=== PATIENT | female | born 1950 | race Caucasian/White ===

== ENCOUNTER 2021-01-18 14:10 | Emergency (ER) | payer MEDICARE ==
[~2021-01-18] VITALS: Ht 167.6 cm; Wt 88.6 kg
[~2021-01-18 14:10] MED LIST: ALPRAZOLAM1 MG PO; AMITRIPTYLIN25 MG PO; AMITRIPTYLIN50 MG PO; ANTIVERT PO; ASA/BUT/CAFF OR; ASPIRIN LOW DOS81 MG PO; ASPIRIN81 MG PO; BEVESPI AEROSPH1 AER IN; CALCIUM + D600 MG PO; CALCIUM600 M1 PO; CYANOCOBAL1000 MCG/M SC; DOXYCYCL HYC100 MG PO; ECOTRIN325 MG PO; EQL OMEPRAZOLE20 MG PO; FISH OIL1000 M1 PO; FLEXERIL PO; FLONASE AL50 MCG/AC1; FLUOXETINE20 M2 OR; FUROSEMIDE40 MG PO; GABAPENTIN400 M2 PO; GABAPENTIN400 MG PO; KEFLEX500 M1 PO; LANTUS; LANTUS100 MG/ML SC; LASIX 40 MG40 MG/TAB PO; LASIX20 MG PO; LEVEMIR100 UNIT/M SC; LEVOTHYROXIN112 MC1 PO; LISINOPRIL10 MG PO; LORATADINE10 M1 PO; LORTAB 1010 MG PO; LORTAB 5 OR; LORTAB 7.5 OR; LORTAB5 OR; Levaquin PO; MECLIZINE25 MG PO; METFORMIN1000 MG PO; METHIMAZOLE10 MG PO; METOPROLOL SUCC25 MG PO; MICARDIS80 MG OR; NEURONTIN100 MG PO; NORCO1 TA1 PO; NOVOLO1 SC; NOVOLOG FL100 UNIT/M SC; NOVOLOG FLEXPEN SC; NOVOLOG100 UNIT/M; OMEPRAZOLE20 M2 PO; PRAVASTATIN SOD20 MG PO; PRAVASTATIN20 MG PO; PROZAC20 MG PO; PROZAC40 MG PO; SIMVASTATIN40 MG OR; SYMBICORT1 AE1 IN; TOPROL XL25 M1 PO; TRAMADOL HCL50 MG PO; TRAMADOL HYDROC50 M1 PO; TRAZODONE HCL100 MG PO; TRESIBA FL100 UNIT/M SC; TRESIBA FL200 UNIT/M SC; TRULICITY0.75 MG/0. SC; ULTRAM50 M1 PO; VENLAFAXINE HCL75 M1; VENLAFAXINE HCL75 M1 PO; VENLAFAXINE100 MG PO; VICODIN HP1 TA1 PO; VICOPROFEN OR; VICTOZA18 MG/3 ML SC; VITAMIN C500 M6 PO; WELLBUTRIN SR150 MG PO; XANAX0.5 MG PO; XANAX1 MG PO; ZOFRAN ODT4 MG SL; ZOFRAN4 MG/TAB PO
[2021-01-18 15:11] LABS: HEMATOCRIT 34.2 % (37.0-47.0); IMMATURE GRANULOCYTES 0.3 % (0.0-5.0); MEAN CELL VOLUME 86.1 fL CALC (80.0-100.0); MEAN CORPUSCULAR HGB 27.7 pG CALC (26.0-32.0); MEAN CORPUSCULAR HGB CONC 32.2 g/dL CAL (32.0-36.0); NEUT# 4.12 thou/uL (2.00-7.15); RED BLOOD COUNT 3.97 mill/uL (4.20-5.60); RED CELL DISTRI WIDTH 15.7 % (11.5-15.5)
[2021-01-18 15:19] LABS: ALBUMIN 3.5 g/dL (3.2-5.0); BILIRUBIN, TOTAL 0.4 mg/dL (0.0-1.4); CREATININE 1.1 mg/dL (0.5-1.0); POTASSIUM 4.2 mmol/l (3.5-5.1); TOTAL PROTEIN 7.4 g/dL (6.3-8.2)
[2021-01-18 18:01] LABS: URINE BILIRUBIN - DIPSTICK NEGATIVE (NEGATIVE); URINE BLOOD DIPSTICK NEGATIVE (NEGATIVE); URINE COLOR YELLOW; URINE GLUCOSE - DIPSTICK 500 mg/dL (NEGATIVE); URINE KETONE NEGATIVE (NEGATIVE); URINE LEUK ESTERASE NEGATIVE (NEGATIVE); URINE PH 6.5 (4.5-8.0); URINE PROTEIN - DIPSTICK NEGATIVE (NEG-TRACE); URINE SPECIFIC GRAVITY 1.025
[2021-01-18 18:03] LABS: URINE NITRITE - DIPSTICK NEGATIVE (Negative)
[2021-01-18 18:40] VITALS: BP 134/59
== END 2021-01-18 18:55 | disposition left against medical advice (07) ==
LOC: ED 14:10
DX: A41.9 Sepsis, unspecified organism (principal); S81.802A Unspecified open wound, left lower leg, initial encounter; L08.9 Local infection of the skin and subcutaneous tissue, unspecified; S80.01XA Contusion of right knee, initial encounter; S00.83XA Contusion of other part of head, initial encounter; S50.311A Abrasion of right elbow, initial encounter; E11.9 Type 2 diabetes mellitus without complications; J44.9 Chronic obstructive pulmonary disease, unspecified; E78.5 Hyperlipidemia, unspecified; F32.9 Major depressive disorder, single episode, unspecified; I89.0 Lymphedema, not elsewhere classified; F17.200 Nicotine dependence, unspecified, uncomplicated; W19.XXXA Unspecified fall, initial encounter; B95.62 Methicillin resistant Staphylococcus aureus infection as the cause of diseases classified elsewhere; Z86.73 Personal history of transient ischemic attack (TIA), and cerebral infarction without residual deficits; Z79.4 Long term (current) use of insulin; Z91.19 Patient's noncompliance with other medical treatment and regimen; Z91.81 History of falling; Z20.822 Contact with and (suspected) exposure to COVID-19

== ENCOUNTER 2021-01-20 14:30 | Emergency (ER) | payer MEDICARE ==
[~2021-01-20] VITALS: Ht 165.1 cm; Wt 118.1 kg
[2021-01-20 19:15] VITALS: BP 134/72
[2021-01-20] MEDS ORDERED: BACTRIM DS1 TAB PO (19:20)
== END 2021-01-20 19:23 | disposition home or self-care (01) ==
LOC: ED 14:30
DX: L03.116 Cellulitis of left lower limb (principal); R78.81 Bacteremia; E11.9 Type 2 diabetes mellitus without complications; J44.9 Chronic obstructive pulmonary disease, unspecified; E78.5 Hyperlipidemia, unspecified; F32.9 Major depressive disorder, single episode, unspecified; F17.210 Nicotine dependence, cigarettes, uncomplicated; S80.01XD Contusion of right knee, subsequent encounter; X58.XXXD Exposure to other specified factors, subsequent encounter; Z79.4 Long term (current) use of insulin; Z86.73 Personal history of transient ischemic attack (TIA), and cerebral infarction without residual deficits

== ENCOUNTER 2021-03-29 17:17 | Inpatient (IN) | payer MEDICARE, MEDICAID ==
[~2021-03-29] VITALS: Ht 167.6 cm; Wt 124.1 kg
[~2021-03-29 17:17] MED LIST changes: +BACTRIM DS1 TAB PO
--- NOTE | 2021-03-29 17:17 | NUR ---
PT TO ROOM VIA EMS STRETCHER OWN EMS BIPAP.
--- NOTE | 2021-03-29 17:20 | NUR ---
PT WAS PLACED ON HOSPITAL BIPAP AT THIS TIME. RR 40. MD AT BEDSIDE.
[2021-03-29 17:52] LABS: HEMATOCRIT 32.8 % (37.0-47.0); HEMOGLOBIN 9.9 g/dl (12.0-16.0); IMMATURE GRANULOCYTES 0.4 % (0.0-5.0); MEAN CELL VOLUME 88.4 fL CALC (80.0-100.0); MEAN CORPUSCULAR HGB 26.7 pG CALC (26.0-32.0); MEAN CORPUSCULAR HGB CONC 30.2 g/dL CAL (32.0-36.0); NEUT# 4.67 thou/uL (2.00-7.15); RED BLOOD COUNT 3.71 mill/uL (4.20-5.60); RED CELL DISTRI WIDTH 16.4 % (11.5-15.5)
--- NOTE | 2021-03-29 17:55 | NUR ---
PT C CO NAUSEA. AUDIO VIDEO TECH PLACED PT ON 6LPM NC AND PT SPO2 DECREASED TO LOW 70S RAPIDLY. PLACED PT BACK ON PRIOR NIV SETTINGS, BUT TITRATED FIOS PER PT SPO2. NAD. VSS. ASHLEY WELL AT THIS TIME.
[2021-03-29 18:08] LABS: BILIRUBIN, TOTAL 0.5 mg/dL (0.0-1.4); CREATININE 1.4 mg/dL (0.5-1.0); POTASSIUM 4.6 mmol/l (3.5-5.1)
[2021-03-29 18:15] LABS: D-DIMER 1.07 mg/L (0.19-0.60)
[2021-03-29 18:25] LABS: ACT PARTIAL THROMBO TIME 32.8 SECONDS (20.0-32.5); INTERNATIONAL NORMALIZED RATIO 1.1 RATIO (0.7-1.3); PROTHROMBIN TIME 11.6 SECONDS (9.0-12.5)
[2021-03-29 18:32] LABS: ALBUMIN 2.6 g/dL (3.2-5.0); TOTAL PROTEIN 5.8 g/dL (6.3-8.2)
--- NOTE | 2021-03-29 19:05 | NUR ---
RECEIVED PATIENT IN BED SEMI-FOWLERS POSITION WITH BIPAP IN USE. O2 SAT DECREASED TO 85% WHEN BIPAP TUBING BECAME DISCONNECTED. O2 SAT RETURNED TO 88 TO 92% ON BIPAP WITH 65% O2. RESP RATE 26, WILL CONTINUE TO MONITOR. MALE PARTS ROOM ASSOCIATE AT BEDSIDE
--- NOTE | 2021-03-29 19:45 | NUR ---
FAMILY MEMBER LEAVING AT THIS TIME. PATIENT REQUEST THAT DAUGHTER IN LAW IN LOBBY BE GIVEN FULL UPDATE TO INCLUDE DIAGNOSIS AND TREATMENT THUS FAR. UPDATE GIVEN.
--- NOTE | 2021-03-29 20:40 | NUR ---
EXTENDED TIME IN RADIOLOGY FOR CT ACCOMPANIED BY RT. IV SITE SAURAV ELIAS AND SECURED WHILE IN CT.
--- NOTE | 2021-03-29 22:00 | NUR ---
O2 SATS 88 TO 96% ON BIPAP AT 65%. O2 SATURATION DECREASED TO 84% PATIENT AROUSED. HEAD POSITIONED WITH ROLLED TOWEL PATIENT LEANS HEAD FORWARD WHEN SLEEPING. O2 SAT INCREASED TO 87%. 100% O2 GIVEN FOR 2 MINUTES. O2 SAT INCREASED TO 89%. PHYICIAN NOTIFIED. WILL CONTINUE TO MONITOR.
--- NOTE | 2021-03-29 22:50 | NUR ---
POST INTUBATION O2 SATS 75-77 ON VENT. VENT DISCONNECTED. AMBU BAG USED - O2 SAT INCREASED TO 80% RT AT BEDSIDE. PHYSICIAN
--- NOTE | 2021-03-29 22:51 | NUR ---
PHYSICIAN NOTIFIED OF PERSISTENT LOW SATURATION ON VENTILATOR WITH 100% O2. RT REMAINS AT BEDSIDE. SUCTIONED SMALL AMT THICK SECREATIONS. VENT REOLACED. WILL CONTINUE TO MONITOR
--- NOTE | 2021-03-29 23:30 | NUR ---
JULITO BLOOD NOTED IMEDIATELY POST ENRIQUEZ INSERTION. ENRIQUEZ INSERTED WITHOUT DIFICULTY. URETHRAL TRAUMA PER PHYSICIAN. GAUZE PLACED TO SITE. WILL MONITOR
--- NOTE | 2021-03-29 23:46 | NUR ---
PROFOFOL STARTED A 5 AND TIRATED TO 25 PER PROTOCOL. BP DECREASED WITH MAP 55. MAP PREVIOUSLY MAINTAINED ABOVE 60. DISCUSSED POSSIBLE CENTRAL LINE PLACEMENT AND USE OF LEVOPHED. PER PHYSICIAN WEAN PROFOFOL WITH PLAN TO USE VERSED FOR SEDATON IF UNABLE TO MAINTAIN SEDATION WITH LOWER DOSE OF PROFOFOL.
--- NOTE | 2021-03-29 23:57 | NUR ---
PROFOFOL WEANED TO 15. PATIENT RESTING QUIETLY. WILL CONTINUE TO MONITOR MAP 60. O2 SATURATIONS 80-84%
[2021-03-30] VITALS (39 sets, daily range): BP systolic 69–144; BP diastolic 30–77
[2021-03-30] LABS: URINE BILIRUBIN - DIPSTICK NEGATIVE (NEGATIVE); URINE BLOOD DIPSTICK TRACE-INTACT (NEGATIVE); URINE COLOR YELLOW; URINE GLUCOSE - DIPSTICK 500 mg/dL (NEGATIVE); URINE KETONE NEGATIVE (NEGATIVE); URINE LEUK ESTERASE NEGATIVE (NEGATIVE); URINE PH 5.5 (4.5-8.0); URINE PROTEIN - DIPSTICK 30 mg/dL (NEG-TRACE); URINE SPECIFIC GRAVITY >=1.030
[2021-03-30 00:01] LABS: URINE NITRITE - DIPSTICK NEGATIVE (Negative)
[2021-03-30 00:06] LABS: URINE BACTERIA FEW hpf; URINE SQUAMOUS EPITHELIAL CELL FEW EPI/hpf (0-FEW)
--- NOTE | 2021-03-30 00:09 | NUR ---
PT AGITATED, MOVING HEAD AND ARMS. PHYSICIAN NOTIFIED. O2 SAT 85-87% RR 22 ON VENT. EMOTIONAL SUPPORT PROVIDED. MAP 77 SUCTIONED SMALL AMT THICK SECREATIONS
--- NOTE | 2021-03-30 00:30 | NUR ---
PT RESTING QUIETLY O2 SAT 88% RR 21
--- NOTE | 2021-03-30 01:10 | NUR ---
REPORT GIVEN TO WEI CORBIN IN ICU FOR ADMISSION
--- NOTE | 2021-03-30 01:14 | NUR ---
AWAITING RT FOR REPORT
--- NOTE | 2021-03-30 01:21 | NUR ---
PATIENT GAGING ON ET TUBE AND ATEMPTING TO REACH FOR TUBE. EMOTIONAL SUPPORT PROVIDED. ED PHYSICIAN NOTIFIED
--- NOTE | 2021-03-30 01:36 | NUR ---
MARISELAAY TO GIVE PRN 2MG VERSED PER DR. YOUNG
--- NOTE | 2021-03-30 02:00 | NUR ---
PATIENT TRANSPORTED TO ICU ACCOMPANIED BY RT WITH PROFOFLO IN USE. AMBU BAG IN USE DURING TRANSPORT. PATIENT TOLERATED WELL. DRSG INTACT TO LLE
--- NOTE | 2021-03-30 02:05 | NUR ---
ARRIVED TO FLOOR FROM ER INTUBATED DIPRIVAN INFUSING RESTLESS AGITATED FOLLOWS NO REQUESTS DOES OPEN EYES WHEN NAME CALLED TO TECHNICAL STAFF ASSISTANT SR WITH PACS ETT TO VENT TV 550 RATE 20 ASSIST CONTROL PEEP+10 FIO2 100% FOLWY PATENT WITH OLY URINE IV 18 IN LAC 20 IN RAC. NORMAL SALLINE STARTED AT 150CC/HR.
--- NOTE | 2021-03-30 04:00 | NUR ---
TITRATING DIPRIVAN AND VERSED GTTS STARTED ON LEVOPHED GTT NO OTHER CHANGES NOTED.PT HAS ULCERS OF LLE DRESSING REMOVED AND REDRESSED AFTER PICTURES TAKEN. SEE TITRATION RECORD.
[2021-03-30 05:44] LABS: HEMATOCRIT 35.2 % (37.0-47.0); HEMOGLOBIN 10.5 g/dl (12.0-16.0); IMMATURE GRANULOCYTES 0.5 % (0.0-5.0); MEAN CELL VOLUME 90.3 fL CALC (80.0-100.0); MEAN CORPUSCULAR HGB 26.9 pG CALC (26.0-32.0); MEAN CORPUSCULAR HGB CONC 29.8 g/dL CAL (32.0-36.0); NEUT# 6.77 thou/uL (2.00-7.15); RED BLOOD COUNT 3.9 mill/uL (4.20-5.60); RED CELL DISTRI WIDTH 16.8 % (11.5-15.5)
--- NOTE | 2021-03-30 06:00 | NUR ---
PATIENT RESTING CALMLY AND QUIETLY AT THIS TIME. VERSED GTT INFUSING AT 2 MG/HR AND NS AT 150 ML/HR INTO RAC IV SITE. PROPOFOL GTT INFUSING AT 25 MCG/KG/MIN AND LEVOPHED INFUSING AT 8 MCG/MIN. VSS. SR ON MONITOR.
[2021-03-30 06:02] LABS: CREATININE 1.4 mg/dL (0.5-1.0)
--- NOTE | 2021-03-30 06:35 | NUR ---
ATTEMPTED TO CALL [facility] TO UPDATE ON PATIENT CONDITION. PHONE NUMBERS ON RECORD [phone] NO ANSWER AND NO VOICE MAIL SET UP. [phone] LEFT MESSAGE AND CALL BACK PHONE NUMBER WITH URGENT DELIVERY.
[2021-03-30 06:44] LABS: C-REACTIVE PROTEIN 20.1 mg/dL (0-0.9); POTASSIUM 5.5 mmol/l (3.5-5.1)
--- NOTE | 2021-03-30 06:46 | NUR ---
O2 SAT 85%. PEEP INCREASED TO 14.
[2021-03-30] MEDS ORDERED: BUPROPN HCL300 MG PO (07:12)
--- NOTE | 2021-03-30 07:50 | NUR ---
PATIENT IS STIL ON A VENT. UNABLE TO RESPOND TO MY VOICE, DOESN'T OPEN HER EYES ON HER OWN. USING HER ABDOMINAL MUSCLES TO BREATHE, RESTLESS, -2 ON RASS SCALE. UNABLE TO FOLLOW COMMANDS. OBESE. SOFT ABDOMEN. HYPOACTIVE BOWEL SOUNDS. S1/S2 NOTED. EDEMA ON LEFT LEG +1, ULCERS ON LOWER LEG WELL PICTURES WERE PREVIOUSLY TAKEN BY NIGHT NURSE. CURRENTLY COVERED WITH A CLEAN, DRY DRESSING. EDEMA ON LEFT FOOT, WEAK PULSE ON THAT LEFT FOOT.SAFETY MEASURES IN PLACE. WILL CONTINUE TO MONITOR.
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
--- NOTE | 2021-03-30 10:00 | NUR ---
PATIENT IS STILL RESTLESS. DR. GEORGES STATED TO NOT PERFORM SEDATION VACATION TODAY, GIVE HER TIME TO RECOVER, TRY TOMORROW TO WEAN OFF. PATIENT'S BREATHING STILL LABORED, RAPID RESPIRATIONS. MOVES ARMS UP AND DOWN. TRIED GETTING IV ON HER TWICE DID NOT WORK DUE TO HER MOVING SO OFTEN. WILL ASK OTHER NURSE TO HELP WITH IV PLACEMENT
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
--- NOTE | 2021-03-30 12:14 | NUR ---
RR INCREASED TO 24.
--- NOTE | 2021-03-30 13:00 | NUR ---
PATIENT'S , SON AND SON'S CAME TO TALK TO ME DOWN AT THE ER. THE SON CALLED EARLIER CO WORKER TOLD HIM TO CALL ME BACK IN 30 MINTUES BECAUSE I WAS IN THE ROOM WITH HIS MOTHER. DID NOT CALL ME BACK, SHOWED UP AT THE ER. WALKED DOWN THERE TO TALK TO THEM, TOOK THEM OUTSIDE TO TALK MORE PRIVATELY THEY STATED THAT THEY AGREED. GAVE THEM AN UPDATE ON HIS MOTHER'S CONDITION. ASKED IF THEY CAN GIVE ME A WORKING NUMBER BECAUSE WE'VE BEEN CALLING AND IT KEEPS SENDING US TO A [employer]. THEY STATED THEY DID NOT OWN A [employer] AND THAT THEY ARE SORRY FOR PROVIDING US WRONG NUMBERS. GAVE ME HIS AND HIS 'S CELL PHONE NUMBERS, PLACED IN THE CHART. TOLD THEM THEY CAN'T VISIT HIS MOTHER BECAUSE SHE TESTED POSITIVE FOR COVID BUT THAT THEY CAN CALL US AT ANY TIME FOR UPDATES WE WILL TRY OUR BEST TO REACH OUT TO YOU WHEN WE HAVE THE TIME. ALSO INFORMED THEM THAT I AM HERE TILL 7PM AND THAT ILL BE MORE THAN HAPPY TO PROVIDE AN UPDATE TO THEM ALSO THE CODE SO THAT THEY CAN ASK FOR MORE UPDATES IN THE FUTURE.
--- NOTE | 2021-03-30 14:00 | NUR ---
PATIENT LOOKS MORE COMFORTABLE IN BED, STILL RAPID RESPIRATIONS USING ABDMONIAL MUSCLES.
--- NOTE | 2021-03-30 16:00 | NUR ---
PATIEMT IS RESTING IN BED, SHALLOW BREATHING BUT LOOKS MORE COMOFORTABLE THAN EARLIER TODAY.
--- NOTE | 2021-03-30 17:30 | NUR ---
PATIENT'S BLOOD SUGAR WAS CRICIALLY HIGH, SENT ORDER FOR STAT BLOOD SUGAR TO BE TAKEN.
--- NOTE | 2021-03-30 17:55 | NUR ---
PATIENT'S DAUGHTER IN LAW ANASTASIA CALLED FOR AN UPDATE, SPOKE TO HER EARLIER DOWNSTAIRS. CODE WAS GIVEN FOR FUTURE REFERENCE. UPDATED WAS GIVEN.
--- NOTE | 2021-03-30 18:20 | NUR ---
PATIENT HAS BEEN GETTING ORAL CARE EVERY TWO HOURS AND SUCTIONING NEEDED THROUGHOUT THE SHIFT.
--- NOTE | 2021-03-30 18:23 | NUR ---
UNABLE TO ADMINISTER THE ZOSYN ON TIME EARLIER, MEDICATION NEEDS TO BE 6 HOURS APART WILL EXPLAIN TO NIGHT NURSE ON WHY I DID NOT ADMINISTER THE ZOSYN AT 1800.
--- NOTE | 2021-03-30 19:30 | NUR ---
remains sedated. vent cont. no acute distress. associate engineer shows sinus rhythm 1st degree avb ivcd hr 70. #20 rt hand saline lock, #18 lac diprivan infusing @ 60mcg/kg/min, levo infusing @ 8mcg/min. #18 rac ns @ 10cchr, versed infusing @ 2mghr. og in place, lis cont draining raines liquid. arias cath in place. urine clear yellow. dsg cdi to lle. turned & repositioned. pt is VERY obese. requires total care for all needs. bilat wrist restraints & fall precautions cont. air mattress requested from supervisor hot dip tinning.
--- NOTE | 2021-03-30 20:29 | NUR ---
ACCUCHEK TAKEN READS CRITICALLY HIGH
--- NOTE | 2021-03-30 22:00 | NUR ---
vent cont assisted by pt. no distress. real estate salesperson shows sinus rhythm 1st degree avb ivcd hr 76.
[2021-03-31] VITALS (22 sets, daily range): BP systolic 97–144; BP diastolic 42–68
--- NOTE | 2021-03-31 00:01 | NUR ---
vent cont assisted by pt. no distress. ivf infusing well.
--- NOTE | 2021-03-31 02:00 | NUR ---
vent cont assisted by pt. no apparent distress. arias draining well.
--- NOTE | 2021-03-31 04:00 | NUR ---
vent cont assisted by pt. cardiac cath lab manager shows sinus rhythm 1st degree avb ivcd hr 70.
--- NOTE | 2021-03-31 05:12 | NUR ---
lab here. blood drawn. xray here. pcxr obtained.
--- NOTE | 2021-03-31 05:15 | NUR ---
rt here. abgs drawn.
[2021-03-31 05:36] LABS: HEMATOCRIT 35.1 % (37.0-47.0); HEMOGLOBIN 10.8 g/dl (12.0-16.0); IMMATURE GRANULOCYTES 1.4 % (0.0-5.0); MEAN CELL VOLUME 88.9 fL CALC (80.0-100.0); MEAN CORPUSCULAR HGB 27.3 pG CALC (26.0-32.0); MEAN CORPUSCULAR HGB CONC 30.8 g/dL CAL (32.0-36.0); NEUT# 8.92 thou/uL (2.00-7.15); RED BLOOD COUNT 3.95 mill/uL (4.20-5.60); RED CELL DISTRI WIDTH 16.7 % (11.5-15.5)
--- NOTE | 2021-03-31 05:50 | NUR ---
entered pts room in an attempt to bathe pt. resps rapid, pulse ox 76%. rt notified. bath given. rt redrew abg's & requested another pcxr. pcxr repeated. rt called results of abg & repeat cxr dr dinh. physician requested pt to be proned.
[2021-03-31 06:09] LABS: CREATININE 1.4 mg/dL (0.5-1.0)
[2021-03-31 06:21] LABS: C-REACTIVE PROTEIN 14.4 mg/dL (0-0.9); POTASSIUM 5.2 mmol/l (3.5-5.1)
--- NOTE | 2021-03-31 07:07 | NUR ---
dr dinh called this communications writer. updated on pts condition. requested family to be called & pulmonary consult with dr serra.
--- NOTE | 2021-03-31 07:13 | NUR ---
kelsie(son) called. update given.
--- NOTE | 2021-03-31 07:33 | NUR ---
PT SEEN INTUBATED, SEDATED, RESTING IN THE BED. PT'S LUNGS ARE COARSE, DIMINISHED IN THE BASES. PEEP 14, OXYGEN 100% FROM VENT, PROPOFOL AND VERSED USED FOR SEDATION, LEVOPHED FOR BLOOD PRESSURE CONTROL. ABDOMEN RISES AND FALLS WITH EACH INSPIRATION. SON MILLIE WAS CALLED THIS MORNING, UPDATED BY MAXIMILIANO ON CRITICAL STATUS.
--- NOTE | 2021-03-31 09:24 | NUR ---
CONSULT PLACED WITH DR GARCIA, JORDAN WORKER, WHO RETURNED CALL SOON THEREAFTER. DR GARCIA STATED THAT THE CT WAS "TERRIBLE" AND RECOMMENDED TURNING TO HER SIDE POSSIBLE SINCE PRONING WOULD BE EXTREMELY DIFFICULT WITH LARGE PT. SHE ALSO RECOMMENDED ACTIMRA IF CARRIED BY OUR PHARMACY.
--- NOTE | 2021-03-31 11:17 | NUR ---
PT HAS BEEN PLACED ON A SPECIALTY MATTRESS. PT REMAINS INTUBATED, SEDATED. DIPRIVAN DECREASED FROM 60 TO 50, LEVOPHED DOWN FROM 8 TO 4.
--- NOTE | 2021-03-31 13:34 | NUR ---
DRESSING CHANGED TO LLE, XEROFORM, ABD AND KERLIX USED.
--- NOTE | 2021-03-31 14:21 | NUR ---
PT note Patient is screened for PT intervention and will eventually need PT consult if medical agrees- once she is medically stable
--- NOTE | 2021-03-31 16:43 | NUR ---
DIPRIVAN REMAINS AT 50, LEVOPHED LOWERED TO 2 FROM 3, VERSED LOWERED TO 10 FROM 20. PT REMAINS AT REST IN THE BED, NO DISTRESS, HAS BEEN TURNED TO HER SIDE MUCH POSSIBLE EVERY 2 HOURS OR LESS. TUBE FEEDING BEGUN AT 30 ML/HR, PULMOCARE.
--- NOTE | 2021-03-31 19:26 | NUR ---
REPORT GIVEN BY MELECIO. PATIENT IS INTBATED AND SEDATED. REFER TO CHARTING FOR VENT SETTINGS. RESP EVEN AND UNLABORED. FALL AND SAFTEY PRECAUTIONS. IV INFUSING DIPIRIVAN, VERSED, LEVOPHED, AND KVO FLUIDS. OJ WITH TUBE FEEDING ON 30ML/HR, PLACEMENT VERIFED. NSR TELE. ENRIQUEZ DRAINING CLEAR YELLOW URINE. LUNG SOUNDS COARSE.
--- NOTE | 2021-03-31 22:36 | NUR ---
CHANGE IN PATIENT CONDITION. FALL AND SAFTEY PRECAUTIONS IN PLACE. NO S/S OF DISTRESS NOTED
--- NOTE | 2021-03-31 23:43 | NUR ---
LUIS M AND SUSNANAH MAK UPDATED ON PATIENT CONDITION
[2021-04-01] VITALS (22 sets, daily range): BP systolic 91–144; BP diastolic 43–75
--- NOTE | 2021-04-01 00:13 | NUR ---
CHECKED RESIDUAL FOR TUBE FEEDING IS 60 ML. TUBE FEEDING TURNED OFF AT THIS TIME. WILL RECHECK AT 0400.
--- NOTE | 2021-04-01 02:00 | NUR ---
PATIENT INTABATED AND SEDATED. NO S/S OF DISTRESS NOTED
--- NOTE | 2021-04-01 04:00 | NUR ---
RESIDUAL MEASURE: 0ML. TUBE FEEDING RESTARTED
[2021-04-01 05:32] LABS: HEMATOCRIT 33.1 % (37.0-47.0); IMMATURE GRANULOCYTES 1.1 % (0.0-5.0); MEAN CELL VOLUME 89.9 fL CALC (80.0-100.0); MEAN CORPUSCULAR HGB 27.2 pG CALC (26.0-32.0); MEAN CORPUSCULAR HGB CONC 30.2 g/dL CAL (32.0-36.0); NEUT# 6.65 thou/uL (2.00-7.15); RED BLOOD COUNT 3.68 mill/uL (4.20-5.60); RED CELL DISTRI WIDTH 16.5 % (11.5-15.5)
[2021-04-01 05:38] LABS: ALBUMIN 2.5 g/dL (3.2-5.0); BILIRUBIN, TOTAL 0.5 mg/dL (0.0-1.4); C-REACTIVE PROTEIN 7.7 mg/dL (0-0.9); CREATININE 1.3 mg/dL (0.5-1.0); TOTAL PROTEIN 5.7 g/dL (6.3-8.2)
[2021-04-01 05:48] LABS: POTASSIUM 5.2 mmol/l (3.5-5.1)
--- NOTE | 2021-04-01 07:48 | NUR ---
PT SEEN AT REST IN THE BED, INTUBATED AND SEDATED. PT WITH O-2 SATS NEARING 100%, RESPIRATORY WITH ADJUSTMENTS DOWNWARD. PT REPOSITIONED TO LEFT SIDE. TUBE FEEDING FINDS RESIDUAL OF GREATER THAN 50, PLACED ON HOLD. ENRIQUEZ DRAINS OLY URINE.
--- NOTE | 2021-04-01 09:55 | NUR ---
PT NOW WITH VERSED DISCONTINUED AND LEVOPHED DISCONTINUED. PT REMAINS SEDATED WITH PROPOFOL AT 50 AND BLOOD PRESSURE IS IN THE UPPER 90s SYSTOLIC. IV LASIX PROVIDED PER INCREASE IN DAILY WEIGHT AND PUFFINESS LLE.
--- NOTE | 2021-04-01 12:45 | NUR ---
PROPOFOL NOW AT 45, PT REMAINS AT REST IN BED WITHOUT MOVEMENT. PT'S OXYGEN SATURATION IS MID TO UPPER 90s.
--- NOTE | 2021-04-01 16:41 | NUR ---
PT WAS NOTED MOVING EXTREMITIES AT PROPOFOL 45 mkm, RETURNED TO 50 FOR COMPLETE SEDATION. LEVOPHED HAD BEEN OFF, RETURNED TO 2 PER LOWERING BLOOD PRESSURE IN THE LOW 90s SYSTOLIC. WEDGE PILLOW PROVIDED BY PHYSICAL THERAPIST SYLVIE, PLACED UNDER ALTERNATING SIDES. PT TOLERATING WELL.
--- NOTE | 2021-04-01 18:18 | NUR ---
OG NOW SET TO LIS PER DRAWING 100 ML OF PULMOCARE FROM TUBE. LEVOPHED DOWN TO 1 FROM 2 PER GOOD BLOOD PRESSURE NOW. WEDGE PLACED ON OTHER SIDE FOR SKIN PRESERVATION. LAC IV SITE REMOVED PER SWELLING TO AREA. SATS REMAIN IN THE 90s.
--- NOTE | 2021-04-01 20:01 | NUR ---
REPORT GIVEN BY MELECIO. PATIENT INTABATED AND SEDATED. OJ LIS. REFER TO CHARTING FOR VENT SETTING. Q6 ACCU CHECK. FALL AND SAFTEY PRECAUTIONS IN PLACE. IV INFUSING DIPIRVAN, KVO FLUIDS, LEVOPHED. ENRIQUEZ DRAINING TO GRAVITY CLEAR YELLOW URINE. SCD IN PLACE, RLE. WOUND PRESENT LLE, DRESSING CDI. PATIENT ON AIR MATTERESS WITH FREQ TURNING FROM SIDE TO SIDE.
--- NOTE | 2021-04-01 21:35 | NUR ---
SON UPDATED ON PATIENT CONDITION
--- NOTE | 2021-04-01 23:57 | NUR ---
MIDNIGHT ACCUCHECK PERFORMED. MEDICATED PER MD ORDERS. RT AT BEDSIDE. PATIENT MOVED FROM SIDE TO SIDE. HEART RATE NOTED 45-50 BPM
[2021-04-02] VITALS (17 sets, daily range): BP systolic 106–166; BP diastolic 51–84
--- NOTE | 2021-04-02 02:00 | NUR ---
NEW TUBING HUNG WITH THE NEW BOTTLE OF JEFF.
--- NOTE | 2021-04-02 02:56 | NUR ---
RT AT THE BEDSIDE
--- NOTE | 2021-04-02 04:13 | NUR ---
PATIENT INTABTED AND SEDATED. FALL AND SAFTEY PRECAUTIONS IN PLACE.
--- NOTE | 2021-04-02 04:52 | NUR ---
RT AND LAB AT THE BEDSIDE
--- NOTE | 2021-04-02 05:28 | NUR ---
X-RAY AT THE BEDSIDE
--- NOTE | 2021-04-02 08:00 | NUR ---
PT SEEN SEDATED, INTUBATED. PT TURNED TO RIGHT SIDE AT THIS TIME. MONITOR SHOWS SATS IN THE 90s. NO AGITATION NOTED.
[2021-04-02 10:04] LABS: BASO% 0 % (0-3); EOS% 0 % (0-8); HEMATOCRIT 30.6 % (37.0-47.0); HEMOGLOBIN 9.5 g/dl (12.0-16.0); IMMATURE GRANULOCYTES 3.4 % (0.0-5.0); LYMPH% 9 % (15-41); MEAN CELL VOLUME 86.7 fL CALC (80.0-100.0); MEAN CORPUSCULAR HGB 26.9 pG CALC (26.0-32.0); MONO% 6 % (2-13); NEUT# 6.06 thou/uL (2.00-7.15); NEUT% 82 % (42-76); PLATELET COUNT 147 thou/uL (130-400); RED BLOOD COUNT 3.53 mill/uL (4.20-5.60); RED CELL DISTRI WIDTH 16.7 % (11.5-15.5)
[2021-04-02 10:21] LABS: ALBUMIN 2.5 g/dL (3.2-5.0); BILIRUBIN, TOTAL 0.4 mg/dL (0.0-1.4); C-REACTIVE PROTEIN 7.1 mg/dL (0-0.9); CREATININE 1.1 mg/dL (0.5-1.0); TOTAL PROTEIN 5.6 g/dL (6.3-8.2)
--- NOTE | 2021-04-02 10:52 | NUR ---
DR ACEVES FROM ER HAS PLACED CENTRAL LINE, TLC TO RIGHT JUGULAR. PT TOLERATED WELL. PCXR DONE, SITE CAN BE USED. PT HAS HAD LOW HR TODAY, LOW 50s. DR VAZQUEZ AWARE, ORDERS RECEIVED TO INCREASE VERSED, INCREASE LEVOPHED, DECREASE PROPOFOL. PT TURNED TO LEFT SIDE. NO ACUTE DISTRESS NOTED.
--- NOTE | 2021-04-02 14:33 | NUR ---
O2 SATURATION 84%. FIO2 INCREASED TO 80%.
--- NOTE | 2021-04-02 15:21 | NUR ---
PT WITH NORMAL HR AGAIN AFTER MED ADJUSTMENTS. ATIVAN NOW IN USE FOR SEDATION ALONG WITH THE PROPOFOL. LEVOPHED CONTINUES TO MAINTAIN ADEQUATE BLOOD PRESSURE. PT WITH COMPLETE BEDBATH BY GRIFFIN PIKE. PT SEEN TO HAVE SMALL LIQUID STOOL. PT'S OXYGEN SAT 91% AFTER BATH. NO DISTRESS NOTED.
--- NOTE | 2021-04-02 17:24 | NUR ---
PT NEEDED TO HAVE RESTRAINTS APPLIED TO BILATERAL WRISTS PER REACHING FOR TUBES, UNABLE TO BE SURE THAT SHE WILL NOT ATTEMPT EXTUBATION. SATS HOVER AROUND 90%. PT TURNED TO RIGHT SIDE.
--- NOTE | 2021-04-02 19:15 | NUR ---
pt remains sedated. vent cont assisted by pt. review scheduling coordinator shows sinus diane ivcd pacs hr 50. ivf per rij tlc. ativan gtt infusing @ 3mg/hr, diprivan infusing @ 25mcg/kg/min, levo infusing @ 2mcg/min, ns infusing @ 10cchr. og in place draining dk green liquid. arias cath in place. urine cloudy jaylen. dsg cdi to lle. bilat wrist restraints, air mattress, scd & air/contact precautions cont. turned & repositioned. wedge replaced. pt is VERY obese. requires total assist with all care.
--- NOTE | 2021-04-02 22:00 | NUR ---
vent cont assisted by pt. telemetry monitor shows sinus diane hr 56.
--- NOTE | 2021-04-02 23:00 | NUR ---
xray here. kulona done.
[2021-04-03] VITALS (22 sets, daily range): BP systolic 96–140; BP diastolic 37–64
--- NOTE | 2021-04-03 00:01 | NUR ---
remains sedated. vent cont assisted by pt. arias draining well.
--- NOTE | 2021-04-03 02:00 | NUR ---
vent cont assisted by pt. cardiac nurse practitioner shows sinus diane ivcd hr 50.
--- NOTE | 2021-04-03 04:45 | NUR ---
blood drawn & sent to lab.
[2021-04-03 05:11] LABS: BASO% 0 % (0-3); EOS% 1 % (0-8); HEMATOCRIT 31.7 % (37.0-47.0); HEMOGLOBIN 9.7 g/dl (12.0-16.0); IMMATURE GRANULOCYTES 5.1 % (0.0-5.0); LYMPH% 10 % (15-41); MEAN CELL VOLUME 86.8 fL CALC (80.0-100.0); MEAN CORPUSCULAR HGB 26.6 pG CALC (26.0-32.0); MEAN CORPUSCULAR HGB CONC 30.6 g/dL CAL (32.0-36.0); MONO% 7 % (2-13); NEUT% 77 % (42-76); PLATELET COUNT 188 thou/uL (130-400); RED BLOOD COUNT 3.65 mill/uL (4.20-5.60); RED CELL DISTRI WIDTH 16.9 % (11.5-15.5)
[2021-04-03 05:32] LABS: ALBUMIN 2.5 g/dL (3.2-5.0); C-REACTIVE PROTEIN 7.3 mg/dL (0-0.9); CREATININE 1.1 mg/dL (0.5-1.0); POTASSIUM 3.8 mmol/l (3.5-5.1); TOTAL PROTEIN 5.8 g/dL (6.3-8.2)
--- NOTE | 2021-04-03 05:40 | NUR ---
xray here. pcxr obtained. bath & linen change x2 assists.
[2021-04-03 05:45] LABS: BILIRUBIN, TOTAL 0.6 mg/dL (0.0-1.4)
--- NOTE | 2021-04-03 07:12 | NUR ---
no changes at this time. marine steam fitter helper to monitor.
--- NOTE | 2021-04-03 12:09 | NUR ---
titrated fio2 to .6 and peep to +10. pt hardik well at this time. spo2=95. rn aware. pathology laboratory technologist to monitor.
--- NOTE | 2021-04-03 12:26 | NUR ---
titrated fio2 as per pt spo2. will attempt to wean again.
--- NOTE | 2021-04-03 15:05 | NUR ---
NO CHANGES AT THIS TIME. PT C NAD. VSS. RESTING COMFORTABLY AT THIS TIME. INTERLOCKING TOWER OPERATOR TO MONITOR.
--- NOTE | 2021-04-03 19:15 | NUR ---
remains sedated. vent cont assisted by pt. breath sounds diminished bilat. air sampling and monitoring shows sinus rhythm ivcd pacs hr 80. rij tlc in place. [id number] infusing @ 20mcg/kg/min, ativan infusing @ 3mg/hr, ns infusing @ 10cchr. og in place. feeding conts. no residual @ present. arias cath in place. urine cloudy jaylen. dsg to lle cdi. scd to rt leg, bilat wrist restraints, air mattress, & air/contact precautions cont. incont of small amt br liquid stool. pt cleansed. turned & repositioned. requires total assist with all care.
--- NOTE | 2021-04-03 22:00 | NUR ---
vent cont assisted by pt. fha underwriter shows sinus rhythm pacs ivcd hr 66.
--- NOTE | 2021-04-03 23:50 | NUR ---
clover-in-law cecilia) called this scientific writer. updated given.
[2021-04-04] VITALS (23 sets, daily range): BP systolic 90–141; BP diastolic 39–68
--- NOTE | 2021-04-04 00:01 | NUR ---
vent cont assisted by pt. had scant liquid brown stool. pt cleansed.
--- NOTE | 2021-04-04 02:00 | NUR ---
vent cont assisted by ptMechelel thomas uop. turned & repositioned.
--- NOTE | 2021-04-04 04:00 | NUR ---
vent cont assisted by pt. school bus monitor shows sinus rhythm ivcd pacs hr 94.
--- NOTE | 2021-04-04 05:00 | NUR ---
xray here. pcxr obtained. blood drawn & sent to lab. am care given x2 staff members.
--- NOTE | 2021-04-04 05:45 | NUR ---
rt here. abgs drawn.
[2021-04-04 05:56] LABS: BASO% 0 % (0-3); EOS% 1 % (0-8); HEMATOCRIT 30.2 % (37.0-47.0); HEMOGLOBIN 9.1 g/dl (12.0-16.0); IMMATURE GRANULOCYTES 5.8 % (0.0-5.0); LYMPH% 11 % (15-41); MEAN CELL VOLUME 89.1 fL CALC (80.0-100.0); MEAN CORPUSCULAR HGB 26.8 pG CALC (26.0-32.0); MEAN CORPUSCULAR HGB CONC 30.1 g/dL CAL (32.0-36.0); MONO% 9 % (2-13); NEUT# 5.59 thou/uL (2.00-7.15); NEUT% 73 % (42-76); PLATELET COUNT 139 thou/uL (130-400); RED BLOOD COUNT 3.39 mill/uL (4.20-5.60)
[2021-04-04 06:31] LABS: ALBUMIN 2.4 g/dL (3.2-5.0); BILIRUBIN, TOTAL 0.6 mg/dL (0.0-1.4); CREATININE 1.2 mg/dL (0.5-1.0); POTASSIUM 3.6 mmol/l (3.5-5.1); TOTAL PROTEIN 5.6 g/dL (6.3-8.2)
--- NOTE | 2021-04-04 06:42 | NUR ---
no changes at this time. pt recieved on all documented parameters. heavy equipment engine mechanic to monitor.
--- NOTE | 2021-04-04 07:34 | NUR ---
PT SEEN RESTING IN THE BED, SEDATED AND INTUBATED. PT WITH COARSE LUNG SOUNDS THROUGHOUT, VENT AT 90% O-2. ABDOMEN SOFT, BENIGN, PULMOCARE TUBE FEEDING AT 40 ML/HR, NO RESIDUAL APPRECIATED. LLE IS 3+ EDEMATOUS, WOUND UNCOVERED TO ALLOW OPEN AIR. RESTRAINTS IN USE, BILATERAL WRISTS, TO PREVENT PT FROM DISLODGING TUBES. OXYGEN SATS RANGE FROM 88 TO 92%. ENRIQUEZ IN PLACE, GREENISH YELLOW OUTPUT, CLEAR. PT APPEARS STABLE AT THIS TIME.
--- NOTE | 2021-04-04 11:06 | NUR ---
no changes at this time. vss. nad. spiral tube winder to monitor.
--- NOTE | 2021-04-04 12:43 | NUR ---
PT REPOSITIONED IN BED Q2H. SHE REMAINS LIGHTLY SEDATED, PT DOES MOVE IF BEING TURNED. SATS SEEN IN MID 90s. NO ACUTE DISTRESS. ATIVAN AND DIPRIVAN CONTINUE FOR SEDATION.
--- NOTE | 2021-04-04 13:49 | NUR ---
weaned pt fio2 as per pt spo2. also, changed vent circuit as per slight volume leak near wye adaptor. nad. vss. patient transporter to monitor.
--- NOTE | 2021-04-04 14:06 | NUR ---
PT REPOSITIONED IN BED AGAIN. SATS REMAIN IN THE 90s. PULMOCARE TUBE FEEDING AT 40, RESIDUAL SEEN TO BE 40 ML AT THIS TIME. HR 88, NSR.
--- NOTE | 2021-04-04 18:20 | NUR ---
PT HAD SMALL LIQUID STOOL, CLEANED. SATS IN THE HIGH 80s, PT SEEN TO DESAT WITH MINIMAL ACTIVITY LIKE CHANGING HER BED. PULMOCARE RUNS AT 35 ML/HR PER TOO MUCH RESIDUAL WITH 40. 10 ML PULLED OUT AFTER RUNNING AT 35 FOR 2 HOURS. PT TOLERATING WELL.
--- NOTE | 2021-04-04 19:10 | NUR ---
vent cont assisted by pt. diminished breath sounds bilat. secured entrance monitor shows sinus pacs ivcd hr 82. rij tlc in place. ns infusing @ 10cchr, diprivan infusing @ 20mcg/kg/min, ativan infusing @ 3mg/hr. pulmocare tube feeding infusing @ 35cchr per og. no residual. arias cath in place. urine cloudy jaylen. scd in place rle. lle nuzhat. has gen body edema. all extremities elevated on pillows. incont small amt brown liquid. pt cleansed, turned & repositioned. bilat wrist restraints, air mattress, air/contact precautions cont. requires total care for all needs.
--- NOTE | 2021-04-04 22:00 | NUR ---
vent cont assisted by pt. resps become rapid with any stimulation.
[2021-04-05] VITALS (23 sets, daily range): BP systolic 107–149; BP diastolic 45–78
--- NOTE | 2021-04-05 00:01 | NUR ---
vent cont assisted by pt. air sampling and monitoring shows sinus rhythm pacs ivcd hr 82.
--- NOTE | 2021-04-05 02:00 | NUR ---
residual 10cc. tube feeding increased to 40cchr.
--- NOTE | 2021-04-05 04:00 | NUR ---
blood drawn & sent to lab. am care given x2 assists. linen changed.
--- NOTE | 2021-04-05 05:00 | NUR ---
xray here. pcxr obtained.
[2021-04-05 05:10] LABS: BASO% 0 % (0-3); EOS% 1 % (0-8); HEMATOCRIT 30.9 % (37.0-47.0); HEMOGLOBIN 9.3 g/dl (12.0-16.0); LYMPH% 9 % (15-41); MEAN CELL VOLUME 89.6 fL CALC (80.0-100.0); MEAN CORPUSCULAR HGB CONC 30.1 g/dL CAL (32.0-36.0); MONO% 10 % (2-13); NEUT# 5.74 thou/uL (2.00-7.15); NEUT% 73 % (42-76); PLATELET COUNT 141 thou/uL (130-400); RED BLOOD COUNT 3.45 mill/uL (4.20-5.60); RED CELL DISTRI WIDTH 17.2 % (11.5-15.5)
[2021-04-05 05:29] LABS: IMMATURE GRANULOCYTES 7.4 % (0.0-5.0)
[2021-04-05 05:41] LABS: ALBUMIN 2.5 g/dL (3.2-5.0); BILIRUBIN, TOTAL 0.6 mg/dL (0.0-1.4); CREATININE 1.1 mg/dL (0.5-1.0); POTASSIUM 3.7 mmol/l (3.5-5.1); TOTAL PROTEIN 5.8 g/dL (6.3-8.2)
[2021-04-05 05:56] LABS: C-REACTIVE PROTEIN 14.3 mg/dL (0-0.9)
--- NOTE | 2021-04-05 07:45 | NUR ---
pt intubated ans sedated; no acute distress noted; assessment completed at this time; no s/sx of pain/ grimaces noted; no vomiting noted; resp tachypneic; abdominal breathing noted; lungs coarse/ diminished bases; skin color wnl; vent intact and maintained with settings of AC mode, rate 32, TV 350, peep 10, FiO2 90%; suctioned orally and ETT; hr reg; strong pulses; generalized edema noted; edema noted to lle; sr/st on monitor; abd soft/ distended with bs hypoactive; no bm noted per poem writer at this time; arias to gravity draining well; cath care; TLC patent to RIJ with ivf/ propofol gtt running at 20mcg/kg/min, versed gtt at 1mg/hr=10cc/hr; no redness or edema noted at site; og tube intact/ placement confirmed via air insertion/ ascult; tube feeding infusing at 40cc/hr; 10cc residual noted; feeding placed on hold for repositioning; wound marketing rotation associate to lle; airr mattress intact; scd to rle; repositioned to right side; propofol on hold for awakening trial; restraints released and reinforced for nursing care; call light within reach; will continue to monitor
--- NOTE | 2021-04-05 08:40 | NUR ---
propofol gtt remains on hold for awakening trial; versed gtt placed on hold; pt continues not to open eyes to verbal or tactile stimuli;
--- NOTE | 2021-04-05 08:50 | NUR ---
Dr Arauz present at bedside to assess pt and discuss plan of care
--- NOTE | 2021-04-05 09:21 | NUR ---
call received from son Jerry Stacy; passcode verified; update provided; Jerry Regis's new phone number [phone]
--- NOTE | 2021-04-05 10:00 | NUR ---
propofol and versed gtt resumed at this time due to increased restlessness, rapid resp and st on monitor; pt will not awaken or follow any verbal commands; pupils reactive and midline; pt does withdraw to painful stimuli; pt will not respond nailbed pressure; repositioned to left side; oral care; restraints; will continue to monitor
--- NOTE | 2021-04-05 11:10 | NUR ---
resp less labored/ abdominal breathing less; sr 80s on the monitor; arias to gravity; vent intact and maintained; will continue to monitor
--- NOTE | 2021-04-05 12:00 | NUR ---
intubated and sedated; no acute distress noted; vent intact and maintained; peep of 14.0/80% FiO2; o2 sat 93%; sr 70-80s on monitor; repositioned supine; oral care with sucitioning; 0 residual noted to feeding tube; pulmocare feed increased to 45cc/hr for a goal of 50cc/hr; arias to gravity; iv intact; restraints reinforced; accucheck 145; will continue to monitor
--- NOTE | 2021-04-05 14:00 | NUR ---
intubated and sedated; repositioned; arias to gravity; vent intact and maintained; sr on monitor; will continue to monitor
--- NOTE | 2021-04-05 16:00 | NUR ---
intubated and sedated; no acute distress noted; resp even and unlabored; sr on monitor; restraints released and reapplied for nursing care; arias to gravity; pt cleansed for lg liq brown stool; cath cath done; iv intact and patent; propofol gtt cont at 20mcg/kg/min; versed at 1mg/hr; repositioned to right side; 60cc residual noted from og/feed tube; feed placed on hold; will reassess;
--- NOTE | 2021-04-05 18:00 | NUR ---
intubated and sedated; repositioned to left side; 15cc residual noted to feeding tube; feed resumed at 35cc/he with a 50cc/hr goal; restraints intact; iv patent; arias to gravity; sr on monitor;
--- NOTE | 2021-04-05 19:49 | NUR ---
RECEIVED REPORT FROM MS. LORY CARVAJAL. PT INTUBATED AND SEDATED, PICC LINE, ENRIQUEZ AND NGT IN PLACE. COVID-19 ISOLATIONS, AIR BORNE, CONTACT AND EYES PRECAUTIONS. PER DAY SHIFT REPORT FAMILY MEMBER (HER SON MILLIE) UP DATED TODAY. PT OBSERVED CALM AND TOLERATED VENTILATED WELL. WILL KEEP MONITORING.
--- NOTE | 2021-04-05 22:00 | NUR ---
PT OBSERVED CALM, SEDATED AND TOLERATED VENTILATOR. HOURLY ROUNDING PROVIDED. VITALS SIGNS STABLE, ORAL CARE, DANUTA CARE AND CATHETER CARE PROVIDED AND DOCUMENTED.
[2021-04-06] VITALS (22 sets, daily range): BP systolic 94–156; BP diastolic 47–86
--- NOTE | 2021-04-06 | NUR ---
HOURLY ROUNDIG PROVIDED, BLOOD SUGAR AT 214mg/dl COVERAGE WITH HUMALOG INSULIN PER DOCTOR ORDER (SEE EMAR), ORAL CARE, SUCTION AND REPOSITION TO SUPINE FOR PREVENT ULCERS.
--- NOTE | 2021-04-06 02:00 | NUR ---
HOURLY ROUNDING PROVIDED, CHANGE POSITION TO SUPINE FOR PREVENTS ULCERS. PT SEDATED AND TOLERATED VENTILATOR. CONTINUOS MONITORING
--- NOTE | 2021-04-06 04:00 | NUR ---
HOURLY ROUNDING PROVIDED. PT OBSERVED CALM. VITAL ARE STABLE. CHANGE POSITION TO RIGHT SITE FOR PREVENTS ULCERS. ORAL CARE, DANUTA CARE AND CATHETER CARE PROVIDED AND DOCUMENTED.
[2021-04-06 05:37] LABS: HEMATOCRIT 30.8 % (37.0-47.0); IMMATURE GRANULOCYTES 5.2 % (0.0-5.0); MEAN CELL VOLUME 91.1 fL CALC (80.0-100.0); MEAN CORPUSCULAR HGB 26.6 pG CALC (26.0-32.0); MEAN CORPUSCULAR HGB CONC 29.2 g/dL CAL (32.0-36.0); NEUT# 4.83 thou/uL (2.00-7.15); RED BLOOD COUNT 3.38 mill/uL (4.20-5.60); RED CELL DISTRI WIDTH 17.4 % (11.5-15.5)
[2021-04-06 05:53] LABS: ALBUMIN 2.4 g/dL (3.2-5.0); BILIRUBIN, TOTAL 0.6 mg/dL (0.0-1.4); CREATININE 1.1 mg/dL (0.5-1.0); POTASSIUM 3.8 mmol/l (3.5-5.1); TOTAL PROTEIN 5.5 g/dL (6.3-8.2)
[2021-04-06 06:12] LABS: C-REACTIVE PROTEIN 14.5 mg/dL (0-0.9)
--- NOTE | 2021-04-06 06:16 | NUR ---
HOURLY ROUNDING. PT OBSERVED CALM, SEDATED, ONE BOWEL MOVEMENT DOCUMENTED, DANUTA CARE, CATHETER CARE AND ORAL CARE PROVIDED. PER ABG'S PEED DECREASED TO 12 AND FIO2: 60%. VITAL ARE STABLE.
--- NOTE | 2021-04-06 08:03 | NUR ---
pt intubated and sedated; no apparent distress noted; assessment completed at this time; pt intubated and sedated; no s/sx/facial grimaces of pain noted; no vomiting noted; resp even and unlabored; lungs clear/ diminished; skin color wnl; vent intact and maintained with settings of AC mode, rate 32, TV 350, peep 12.0, FiO2 of 60%; orally suctioned/ ETT suctioned; hr reg; weak left pedal pulses; generalized edema noted; sr on monitor; abd soft/ distended with bs present; no bm noted per ticket writer at this time; og intact and patent; placement confirmed via air insertion/ascult; pulmocare tube feed in progress infusing at 45cc/hr; 4cc residual noted; feed continued; arias to gravity draining cloudt jaylen urine; TLC patent to RIJ with ns/ propofol at 20mcg/kg/min and versed gtt at 1mg/hr; versed placed on holding for awakening trial; pt repositined to left side; scd intact to rle; restraints reinforced; will continue to monitor
--- NOTE | 2021-04-06 08:15 | NUR ---
pt on left side; st on monitor; abdominal breathing noted; o2 sat at 89%; Dr Arauz present on unit; informed of finding and pts changes when positioned on left side; will continue to monitor closely
--- NOTE | 2021-04-06 08:40 | NUR ---
Dr Arauz present at bedside
--- NOTE | 2021-04-06 10:00 | NUR ---
intubated and sedated; abd resp noted; vent intact and maintained; iv patent; versed remains on hold for awakening trial; st on monitor; arias to gravity; repositioned to right side; oral care and suctioning; tube feed continues; will continue to monitor
--- NOTE | 2021-04-06 11:00 | NUR ---
propofol gtt titrated for awakening trial
--- NOTE | 2021-04-06 12:00 | NUR ---
intubated; sedation remains on hold for awakening trial; pt does not respond to verbal stimuli; withdraws slightly to sternal rub; pt does not respond to nailbed pressure; repositioned to supine; vent intact and maintained; medicated with insulin as per accucheck result; st on monitor; restraints reinforced; 30cc residual noted to tube feed/ tube feed continued; arias to gravity; will continue to monitor
--- NOTE | 2021-04-06 14:00 | NUR ---
intubated; no apparent distress; sedation remains off at this time; pt appears comfortable; resp less labored; sr 80s on monitor; arias to gravity; repositioned; restraints continued; pt does not respond to verbal stimuli; will continue to monitor
--- NOTE | 2021-04-06 14:45 | NUR ---
return call placed to daughter in law Yaneth; update provided
--- NOTE | 2021-04-06 15:55 | NUR ---
pt noted moving arms; in to assess pt; pt noted with eyes open; pt moving head from side to side; pt continues to NOT follow verbal commands; pt responsive to painful stimuli; call placed to troy Downing and Yaneth via protable speaker phone; family able to speak to pt; st on monitor; resp labored/ abdominal breathing noted; pt observed moving all extremities; pt cleansed for XLG liquid brown bm; repositioned supine; oral care/ suctioning; tongue noted coated; arias to gravity; 1610- propofol and versed resumed at this time due to increased restlessness, tachycardia, tachypnea, o2 sat 87%; restraints re-inforced; will continue to monitor
--- NOTE | 2021-04-06 18:00 | NUR ---
intubated and sedated; no apparent distress noted; cleansed for lg bm; repositioned to right side; oral care and suctioning; sr on monitor; vent intact and maintained; arias to gravity; restraints intact;
--- NOTE | 2021-04-06 19:48 | NUR ---
RECIEVED REPORT FROM WEI MCLEAN. PT INTUBATED, SEDATED, WITH PROPFOL AND VERSED GTT INFUSING. OG TUBE IN PLACE WITH TUBE FEED INFUSING, WILL CONTINUE TO MONTIOR PER FACILITY POLICY
--- NOTE | 2021-04-06 20:00 | NUR ---
INTUBATED AND SEDATED, NO S/S OF DISTRESS NOTED
[2021-04-07] VITALS (19 sets, daily range): BP systolic 107–154; BP diastolic 44–69
--- NOTE | 2021-04-07 | NUR ---
INTUBATED AND SEDATED. RESIDUALS AT 10ML ON TUBE FEED, UPDATED PROVIDED TO VANESSA MAK. REQUESTS MD CALL HR AT [phone]
[2021-04-07 06:00] LABS: BASO% 0 % (0-3); EOS% 2 % (0-8); HEMATOCRIT 29.6 % (37.0-47.0); HEMOGLOBIN 8.8 g/dl (12.0-16.0); LYMPH% 10 % (15-41); MEAN CELL VOLUME 90.8 fL CALC (80.0-100.0); MEAN CORPUSCULAR HGB CONC 29.7 g/dL CAL (32.0-36.0); MONO% 11 % (2-13); NEUT# 4.32 thou/uL (2.00-7.15); NEUT% 73 % (42-76); PLATELET COUNT 130 thou/uL (130-400); RED BLOOD COUNT 3.26 mill/uL (4.20-5.60); RED CELL DISTRI WIDTH 17.3 % (11.5-15.5)
[2021-04-07 06:35] LABS: ALBUMIN 2.4 g/dL (3.2-5.0); BILIRUBIN, TOTAL 0.5 mg/dL (0.0-1.4); CREATININE 1.1 mg/dL (0.5-1.0); POTASSIUM 3.7 mmol/l (3.5-5.1); TOTAL PROTEIN 5.5 g/dL (6.3-8.2)
[2021-04-07 07:06] LABS: C-REACTIVE PROTEIN 12.7 mg/dL (0-0.9)
--- NOTE | 2021-04-07 08:02 | NUR ---
PT SEEN SEDATED, INTUBATED. LUNGS SIGNIFICANTLY DECREASED, O-2 45% WITH SATS SEEN IN THE UPPER 90s. ABDOMEN SOFT, POSITIVE BOWEL SOUNDS. PULMOCARE AT 45 WAS UPPED TO 50 PER NO RESIDUAL. SCD IN PLACE. WOUNDS TO LLE REMAIN OPEN TO AIR, APPEAR HEALING. SWELLING IS LESS IN LLE, NOW 2+. PT OCCASIONALLY NOTED TO MOVE AN EXTREMITY, UNSURE OF PURPOSEFULNESS. PT REMAINS ON DIPRIVAN AT 20 AND VERSED AT 1.
--- NOTE | 2021-04-07 13:20 | NUR ---
PT HAS BEEN TURNED FROM SIDE TO SIDE FOR SKIN PRESERVATION AT LEAST EVERY 2 HOURS. DIPRIVAN WAS AT 20, WEANED OFF AT THIS TIME FOR SEDATION VACATION. PT WITH MOVEMENT OF EXTREMITIES, TONGUE ATTEMPTS TO MOVE ET TUBE. EYES HELD OPEN BUT NOT TRACKING. SON MILLIE CALLED EARLIER TODAY AND WAS UPDATED.
--- NOTE | 2021-04-07 13:52 | NUR ---
ATIVAN REMAINS OFF AFTER SEDATION VACATION, PT SEEN AT REST IN THE BED. SHE DID HAVE EXTREMITY MOVEMENT AND TONGUE ACTIVITY WHEN UN-SEDATED. SHE DID NOT SQUEEZE HAND OR TRACK WITH EYES. WRIST RESTRAINTS REMAIN IN PLACE PER OCCASIONAL MOVEMENT THAT MAY RESULT IN DISLODGING OF TUBES.
--- NOTE | 2021-04-07 15:20 | NUR ---
PT NOW SEDATED AGAIN, NO PURPOSEFUL MOVEMENT NOTED. PT WITH SATS IN THE UPPER 90s. PULMOCARE TUBE FEEDING CONTINUES AT 50 ML/HR, TOLERATED WITH MINIMAL RESIDUAL.
--- NOTE | 2021-04-07 16:58 | NUR ---
PT WITH STOOL NOTED, WAS BATHED AND LINEN CHANGED. PT TOLERATED WELL, NO RESPONSE NOTED DURING HER BEING TURNED.
--- NOTE | 2021-04-07 19:00 | NUR ---
REPORT GIVEN BY MELECIO. PATIENT IS INTABED AND SEDATED. REFER TO VENT CHARTING FOR VNT SETTINGS. OJ HAS TUBE FEEDING AT 50 ML/HR WITH PROGRAMED FLUSH. RIJ TLC INFUSING DIPIRVAN AND KVO FLUIDS. ABD DISTENTED WITH HYPOACTIVE BOWEL SOUNDS PRESENT. FALL AND SAFTEY PRECAUTIONS IN PLACE. ENRIQUEZ DRAINING TO GRAVITY WITH YELLOW URINE PRESENT IN BAG.
--- NOTE | 2021-04-07 21:03 | NUR ---
RESIDUAL CHECKED FROM TUBE FEEDING 10 ML. DRESSING CHANGE PERFORMED ON ARJ TLC. TUBING CHANGED FOR DIPRIVAN.
[2021-04-08] VITALS (14 sets, daily range): BP systolic 98–192; BP diastolic 38–82
--- NOTE | 2021-04-08 00:28 | NUR ---
NO S/S OF DISTRESS NOTED.
--- NOTE | 2021-04-08 00:57 | NUR ---
RESIDUAL CHECKED, OML RETURN. TUBE FEEDING RESUMED.
--- NOTE | 2021-04-08 02:30 | NUR ---
NEW BOTTLE OF DIPRIVAN SPIKED.
--- NOTE | 2021-04-08 05:58 | NUR ---
FULL BED BATH GIVEN AND LIEN CHANGE PERFORMED. PATIENT HAS A LARGE WATERY BM.
[2021-04-08 06:11] LABS: ALBUMIN 2.5 g/dL (3.2-5.0); ALKALINE PHOSPHATASE 98 u/l (38-126); ANION GAP 8 (6-22 (CALC)); BILIRUBIN, TOTAL 0.4 mg/dL (0.0-1.4); BUN 58 mg/dL (8-23); BUN/CREATININE RATIO 58 (12-20 (CALC)); CARBON DIOXIDE 36 mmol/l (22-30); CHLORIDE 108 mmol/l (95-108); GFR 55 ML/MIN (>=60 (CALC)); GFR FOR AFR.AMER. > 60 ML/MIN (>=60 (CALC)); POTASSIUM 3.8 mmol/l (3.5-5.1); SGOT/AST 65 u/l (9-36); SODIUM 148 mmol/l (137-146); TOTAL PROTEIN 5.8 g/dL (6.3-8.2)
[2021-04-08 06:16] LABS: HEMATOCRIT 31.5 % (37.0-47.0); HEMOGLOBIN 9.2 g/dl (12.0-16.0); MEAN CELL VOLUME 91.3 fL CALC (80.0-100.0); MEAN CORPUSCULAR HGB 26.7 pG CALC (26.0-32.0); MEAN CORPUSCULAR HGB CONC 29.2 g/dL CAL (32.0-36.0); RED BLOOD COUNT 3.45 mill/uL (4.20-5.60); RED CELL DISTRI WIDTH 17.3 % (11.5-15.5)
--- NOTE | 2021-04-08 06:24 | NUR ---
MORNING MEDICATIONS GIVEN
--- NOTE | 2021-04-08 06:37 | NUR ---
CHECK TUBE FEEDING, NO RESIDUAL AND CHECK PLACEMENT OF OJ TUBE.
--- NOTE | 2021-04-08 07:39 | NUR ---
PT IS SEEN SEDATED, VENTED, AT REST IN THE BED. LUNGS CLEAR BUT DIMINISHED, FiO-2 AT 40%, SATS 94%. PULMOCARE AT 50 ML/HR, NO RESIDUAL SEEN WHEN CHECKED. PT SEDATED WITH DIPRIVAN, NO PURPOSEFUL MOVEMENT NOTED.
--- NOTE | 2021-04-08 10:23 | NUR ---
PT HAS BEEN WEANED OFF DIPRIVAN FOR SHORT TRIAL THIS MORNING. PT DID OPEN HER EYES, MOVED EXTREMITIES, BUT DID NOT HAVE PURPOSEFUL MOVEMENT. SHE WAS CLEARLY IRRITATED BY ET TUBE AND NEEDED TO HAVE DIPRIVAN RUNNING SOON THEREAFTER FOR SEDATION. PT IS SEEN AT REST IN THE BED AT THIS TIME, ONCE AGAIN CALM.
--- NOTE | 2021-04-08 12:49 | NUR ---
PT WITH OCCASIONAL MOVEMENTS IN BED, NONE PURPOSEFUL. DIPRIVAN AT 30 MKM. PT INCONTINENT OF STOOL, BED CHANGED AND BEDBATH PROVIDED.
--- NOTE | 2021-04-08 15:28 | NUR ---
PT NEEDED DIPRIVAN TITRATED PER MOVING AROUND IN THE BED, NOW SEEN WITH MINIMAL MOTION AT REST. IV REMDESIVIR RUNNING.
--- NOTE | 2021-04-08 17:52 | NUR ---
PT CLEANED UP AGAIN FOR WATERY STOOL, TOLERATED WELL. DIPRIVAN AT 35 MKM, PT CONTINUES WITH SLIGHT MOVEMENT ON OCCASION.
--- NOTE | 2021-04-08 19:00 | NUR ---
REPORT GIVEN BY MELECIO. PATIENT SEDATED AND INTABED. REFER TO VENT CHARTING FOR SETTINGS. RIJ TLC INFUSING KVO FLUIDS AND DIPRIVAN. FALL AND SAFTEY PRECAUTIONS IN PLACE. BILATERAL WRIST RESTRIANTS IN PLACE. ENRIQUEZ DRAINING OLY COLORED URINE. TUBE FEEDING 50 ML/HR, VERIFIED PLACEMENT OF OJ AND NO RESIDUAL. LLE WOUND OPEN TO AIR. SCD ON OTHER LEG. PATIENT ON AIR MATTRESS.
--- NOTE | 2021-04-08 20:18 | NUR ---
RT CALLED TO BEDSIDE. PATIENT O2 SAT DECREASED. WEDGE PLACED UNDER PATIENT. SUCTIONING PERFORMED BY NURSING STAFF, GREEN THICK PHLEM NOTED WITH MARCO WHZ AND RUL RHONCHI PRESENT. RT PERFORMED DEEP SUCTIONING AT BEDSIDE ADJUSTED VENT SETTING. PEEP CHANGED FROM 10 TO 12.
--- NOTE | 2021-04-08 22:23 | NUR ---
DAUGHTER IN LAW UPDATED ON PATIENT CONDITION
[2021-04-09] VITALS (28 sets, daily range): BP systolic 83–169; BP diastolic 28–90
--- NOTE | 2021-04-09 00:30 | NUR ---
PATIENT CLEANED UP AFTER SMALL BM. BM WAS SOFT
--- NOTE | 2021-04-09 03:14 | NUR ---
CHANGED TUBING FOR DIPRIVAN
--- NOTE | 2021-04-09 03:35 | NUR ---
LEVOPHED DRIP STARTED AT 2 MCG/HR FOR A BP 88/28.
--- NOTE | 2021-04-09 03:39 | NUR ---
LEVOPHED STARTED DUE TO BP 92/38
--- NOTE | 2021-04-09 05:36 | NUR ---
MORNING MEDICATION PASSED PER MD ORDERS. LEVOPHED TURN DOWN TO 1 MCG/HR DUE TO SBP 141. TUBE FEEDING BAG CHANGED
--- NOTE | 2021-04-09 06:00 | NUR ---
LEVOPHED TITRATED FROM 1 MCG/HR TO 2 MCG/HR DUE TO BP 83/43
--- NOTE | 2021-04-09 06:06 | NUR ---
PATIENT HAS SMALL SOFE BM. FULL LINEN CHANGE PERFORMED AND BED BATH
[2021-04-09 06:10] LABS: BASO% 0 % (0-3); EOS% 2 % (0-8); HEMATOCRIT 32.8 % (37.0-47.0); HEMOGLOBIN 9.7 g/dl (12.0-16.0); IMMATURE GRANULOCYTES 1.3 % (0.0-5.0); LYMPH% 11 % (15-41); MEAN CELL VOLUME 90.6 fL CALC (80.0-100.0); MEAN CORPUSCULAR HGB 26.8 pG CALC (26.0-32.0); MEAN CORPUSCULAR HGB CONC 29.6 g/dL CAL (32.0-36.0); MONO% 10 % (2-13); NEUT# 8.54 thou/uL (2.00-7.15); NEUT% 75 % (42-76); PLATELET COUNT 163 thou/uL (130-400); RED BLOOD COUNT 3.62 mill/uL (4.20-5.60); RED CELL DISTRI WIDTH 17.2 % (11.5-15.5)
[2021-04-09 06:42] LABS: ALBUMIN 2.5 g/dL (3.2-5.0); ALKALINE PHOSPHATASE 111 u/l (38-126); ANION GAP 8 (6-22 (CALC)); BUN 53 mg/dL (8-23); BUN/CREATININE RATIO 53 (12-20 (CALC)); C-REACTIVE PROTEIN 8.2 mg/dL (0-0.9); CARBON DIOXIDE 37 mmol/l (22-30); CHLORIDE 106 mmol/l (95-108); GFR 55 ML/MIN (>=60 (CALC)); GFR FOR AFR.AMER. > 60 ML/MIN (>=60 (CALC)); POTASSIUM 3.6 mmol/l (3.5-5.1); SGOT/AST 82 u/l (9-36); SODIUM 147 mmol/l (137-146); TOTAL PROTEIN 5.8 g/dL (6.3-8.2)
[2021-04-09 06:48] LABS: BILIRUBIN, TOTAL 0.6 mg/dL (0.0-1.4)
--- NOTE | 2021-04-09 08:00 | NUR ---
PT SEEN SEDATED, VENTED, RESTLESS AT TIMES. LUNGS SLIGHTLY COARSE, 40% FiO2. NO PURPOSEFUL INTERACTION SHE DOES NOT SQUEEZE HAND OR MOVE FOOT. PT ON LEVOPHED PER LOW BLOOD PRESSURE DURING NIGHT, NOW WNL.
--- NOTE | 2021-04-09 11:14 | NUR ---
CENTRAL LINE DRESSING CHANGED AT THIS TIME, PT TOLEREATED WITHOUT RESPONSE. PT WITH SLIGHT MOVEMENTS, NOTHING PURPOSEFUL NOTED.
--- NOTE | 2021-04-09 14:44 | NUR ---
PT HAS REMAINED RELATIVELY CALM AT CURRENT SETTINGS. DIPRIVAN IS AT 30 AND LEVOPHED AT 1.5. HR 80s AND BP 120s. NO DISTRESS, PT TURNED AT LEAST Q2H.
--- NOTE | 2021-04-09 16:39 | NUR ---
DAUGHTER IN LAW LUIS M CAMP WAS UPDATED ON PT CONDITION. PT REMAINS BEFORE, NO DISTRESS, VITALS STABLE.
--- NOTE | 2021-04-09 20:00 | NUR ---
RECEIVED REPORT FROM IVU-RN. PT VENTED AND SEDATED. ASSESMENT DOCUMENTED. ENRIQUEZ CATHETER, OROGASTRIC TUBE, RIGHT INTERNAL CENTRAL LINE AND RESTRAINTS IN PLACE. LEVOPHED AND PROPOFOL DRIPS RUNNING PER ORDER (SEE EMAR).
--- NOTE | 2021-04-09 22:00 | NUR ---
HOURLY ROUNDING PROVIDED. PT OBSERVED CALM AND SLEEP. VITALS STABLE. ORAL CARE, DANUTA CARE AND CATHETER CARE PROVIDED.
[2021-04-10] VITALS (23 sets, daily range): BP systolic 104–162; BP diastolic 42–72
--- NOTE | 2021-04-10 | NUR ---
HOURLY ROUNDING PROVIDED, BLOOD SUGAR WAS 183mg/dl AND COVERAGE WITH INSULIN PER DOCTOR ORDER (SEE MAR) VITALS SIGNS ARE STABLE. WILL KEEP MONITORING.
--- NOTE | 2021-04-10 02:00 | NUR ---
HOURLY ROUNDING PROVIDED. CHANGED POSITION TO THE RIGHT FOR PREVENTS ULCERS.
--- NOTE | 2021-04-10 04:00 | NUR ---
HOURLY ROUNDING PROVIDED. ORAL CARE, DANUTA CARE, CATHETER CARE AND REPOSITION PT.
--- NOTE | 2021-04-10 06:22 | NUR ---
PT RECIEVED ON ALL DOUMENTED PARAMTERS. ASHLEY WELL AT THIS TIME. INSURANCE RISK ANALYST TO MONITOR.
--- NOTE | 2021-04-10 06:46 | NUR ---
Report given to Mr. Alvarado Soil Fertility Specialist. Turn off Levophed at 6am. Vitals are stable.
[2021-04-10 06:53] LABS: HEMATOCRIT 31.2 % (37.0-47.0); HEMOGLOBIN 9.2 g/dl (12.0-16.0); MEAN CELL VOLUME 91.8 fL CALC (80.0-100.0); MEAN CORPUSCULAR HGB 27.1 pG CALC (26.0-32.0); MEAN CORPUSCULAR HGB CONC 29.5 g/dL CAL (32.0-36.0); RED BLOOD COUNT 3.4 mill/uL (4.20-5.60); RED CELL DISTRI WIDTH 17.2 % (11.5-15.5)
[2021-04-10 07:00] LABS: ALBUMIN 2.4 g/dL (3.2-5.0); BILIRUBIN, TOTAL 0.7 mg/dL (0.0-1.4); CREATININE 1.1 mg/dL (0.5-1.0); MAGNESIUM 2.2 mg/dL (1.6-2.3); POTASSIUM 3.8 mmol/l (3.5-5.1); TOTAL PROTEIN 5.7 g/dL (6.3-8.2)
--- NOTE | 2021-04-10 07:56 | NUR ---
PT SEEN SEDATED, INTUBATED, RESTING IN THE BED. LUNGS ARE CLEAR BUT SIGNIFICANTLY DIMINISHED, 50% FiO2. LEVOPHED HAS BEEN TAPERED OFF SINCE YESTERDAY.
--- NOTE | 2021-04-10 10:06 | NUR ---
PLACED PT ON SBT PER MD ORDER. PT DXRW=847. RR= 34. PS=15. PEEP=12. PT UNABLE TO PREFORM STRONG COUGH MANUEVER OR FOLLOW DIRECTIONS APPROPRIATELY AT THIS TIME. DATABASE SECURITY ADMINISTRATOR TO MONOITOR. RN AND AWARE.
--- NOTE | 2021-04-10 13:21 | NUR ---
PT HAD SEDATION VACATION THIS MORNING, RT WAS ABLE TO PERFORM WEANING TRIAL. PT SEEN BY DR FITZPATRICK, WHO NOW WOULD LIKE TO TRANSFER PT FOR TRACHEOSTOMY. PT WITH LIGHT SEDATION, OVERBREATHES VENT OFTEN.
--- NOTE | 2021-04-10 14:07 | NUR ---
PT C NAD. VSS. NO CHANGES AT THIS TIME. OUTSIDE PLANT CABLE ENGINEER TO MONITOR.
--- NOTE | 2021-04-10 15:03 | NUR ---
PT TURNED IN THE BED. NO BM. PT CONTINUES WITH SOME MOVEMENT, BUT NONE APPEAR PURPOSEFUL. NO RESIDUAL APPRECIATED IN PULMOCARE TUBE FEEDING.
--- NOTE | 2021-04-10 17:40 | NUR ---
PT TURNED AGAIN IN THE BED, BARRIER CREAM APPLIED TO COCCYX AND SHEETS CHANGED. PT REMAINS ON SAME VENT SETTINGS, VSS.
--- NOTE | 2021-04-10 22:00 | NUR ---
Provided oral care, catheter care and lorrie care. Changed position to left side for prevents ulcer.
[2021-04-11] VITALS (25 sets, daily range): BP systolic 75–155; BP diastolic 29–107
--- NOTE | 2021-04-11 00:32 | NUR ---
Hourly rounding provided. Oral care provided. Changed position to the right side. Insulin coverage critical care specialist per doctor order (see emar)
--- NOTE | 2021-04-11 02:00 | NUR ---
Hourly rounding. Pt tolerated vented and sedation. Follow falls and safety precautions.
--- NOTE | 2021-04-11 04:00 | NUR ---
Hourly Rounding provided. Draw daily labs per oder. Provided oral care, catheter care and lorrie care. Tube feeding lines changed.
[2021-04-11 05:04] LABS: BASO% 0 % (0-3); EOS% 1 % (0-8); HEMATOCRIT 30.4 % (37.0-47.0); HEMOGLOBIN 8.8 g/dl (12.0-16.0); IMMATURE GRANULOCYTES 0.5 % (0.0-5.0); LYMPH% 8 % (15-41); MEAN CELL VOLUME 92.7 fL CALC (80.0-100.0); MEAN CORPUSCULAR HGB 26.8 pG CALC (26.0-32.0); MEAN CORPUSCULAR HGB CONC 28.9 g/dL CAL (32.0-36.0); MONO% 8 % (2-13); NEUT# 11.16 thou/uL (2.00-7.15); NEUT% 83 % (42-76); PLATELET COUNT 135 thou/uL (130-400); RED BLOOD COUNT 3.28 mill/uL (4.20-5.60); RED CELL DISTRI WIDTH 17.8 % (11.5-15.5)
[2021-04-11 05:23] LABS: ALBUMIN 2.4 g/dL (3.2-5.0); BILIRUBIN, TOTAL 0.9 mg/dL (0.0-1.4); CREATININE 1.3 mg/dL (0.5-1.0); TOTAL PROTEIN 5.8 g/dL (6.3-8.2)
[2021-04-11 05:52] LABS: C-REACTIVE PROTEIN 23.9 mg/dL (0-0.9)
--- NOTE | 2021-04-11 06:00 | NUR ---
Hourly rounding provided. Insulin coverage per order (See Emar). Report given to day shift nurse.
--- NOTE | 2021-04-11 06:50 | NUR ---
PT RECIEVED ON ALL DOCUMENTED PARAMETERS. ASHLEY KEENE. NAD. VSS. PRIME MINISTER TO MONITOR.
--- NOTE | 2021-04-11 08:00 | NUR ---
PATIENT IS STILL ON A VENT. HAS LITTLE TO NO MOVEMENTS ON HER OWN. DOES MOVE HER HEAD WHEN GIVING IV MEDICATIONS. SEEMS COMFORTABLE. NO RESPONSE WHEN CALLING HER NAME. CONTIUES TO BE ON SEDATION. WILL DO SEDATION VACATION LATER ON TO SEE IF SHE CAN FOLLOW COMMANDS. LUNGS ARE DIMINISHED. HYPOACTIVE BOWEL SOUNDS. SOFT/OBESE ABDOMEN. EDEMA IN ALL LIMBS, PIT 1+. SCABS/ OPEN AREAS IN LLE. WEAK PEDAL PULSES. LEGS AND ARMS ARE CURRENTLY ELEVATED ON PILLOWS. SAFETY MEASURES IN PLACE. CALL LIGHT IN REACH. WILL CONTINUE TO MONITOR.
--- NOTE | 2021-04-11 10:35 | NUR ---
WEANED FIO2 AND PEEP PER PT SPO2 AND TOLERANCE. PT ASHLEY WELL AT THIS TIME. RN AWARE. CHEF TO MONITOR.
--- NOTE | 2021-04-11 12:45 | NUR ---
PATIENT WAS OFF SEDATION, NOT FOLLOWING COMMANDS. DID OPEN HER EYES SLIGHTLY. WAS UNABLE TO LOOK AT ME OR FOLLOW MY HAND/FINGER. DID NOT SQUEEZE MY HAND. VITALS WERE INCREASING, PATIENT SEEMED UNCOMFORTABLE. BREATHING HEAVIER AND USING ABDOMINAL MUSCLES. PLACED SEDATION BACK ON AND TITRATED IT UP TO 35 WHERE SHE WAS SCORING -3 ON RASS EARLIER IN THE DAY. SAFETY MEASURES IN PLACE. WILL CONTINUE TO MONITOR.
--- NOTE | 2021-04-11 14:00 | NUR ---
PATIENT IS RESTING COMFORTABLE IN BED
--- NOTE | 2021-04-11 16:30 | NUR ---
PATIENT HAD A BOWEL MOVEMENT, WAS CLEANED UP, SHEETS WERE REPLACED WITH CLEAN ONES AND REPOSTIONED.
--- NOTE | 2021-04-11 17:27 | NUR ---
SON MILLIE CALLED, MILLIE GAVE THE CODE AND WAS GIVEN AN UPDATE.
--- NOTE | 2021-04-11 18:06 | NUR ---
PATIENT IS RESTING COMFORTABLE IN BED, SAFETY MEASURES IN PLACE. WILL CONTINUE TO MONITOR.
--- NOTE | 2021-04-11 19:30 | NUR ---
ASSESSMENT DONE SX ETT TO LARGE THICK GARZA YELLOW SECRETIONS SAT 87% RT MADE AWARE ON VENT TV 350 RATE 28 PEEP +10 FIO2 45% JOINERY FACTORY WORKER SHOWS ST RATE 110S TUBE FEEDS PULMOCARE INFUSING VIA OGT AT 50CC/HR 0CC RESIDUAL ASPIRATED
--- NOTE | 2021-04-11 22:23 | NUR ---
LEVOPHED STARTED AT 2MCG/MIN FOR HYPOTENSION
--- NOTE | 2021-04-11 23:01 | NUR ---
SPUTUM SPEC OBTAINED AND SENT TO LAB
--- NOTE | 2021-04-11 23:23 | NUR ---
FIO2 INCREASED TO 55% BY RT
[2021-04-12] VITALS (22 sets, daily range): BP systolic 82–171; BP diastolic 36–74
--- NOTE | 2021-04-12 00:13 | NUR ---
SEDATED IN BED ON VENT TUBE FEEDS INFUSING AFEBRILE
--- NOTE | 2021-04-12 01:14 | NUR ---
LEVOPHED INCREASED TO 3MCG/MIN FOR SBP IN THE 80S
--- NOTE | 2021-04-12 01:50 | NUR ---
DIPRIVAN DECREASED TO 30MCG/KG/MIN
--- NOTE | 2021-04-12 03:29 | NUR ---
COMPLETE BATH MOUTHCARE SKINCARE ENRIQUEZ CARE AND LINEN CHANGE DONE
--- NOTE | 2021-04-12 06:01 | NUR ---
NO CHANGES NOTED CLEANED AFTER INC OF LIQUID BROWN STOOL
[2021-04-12 07:07] LABS: HEMATOCRIT 28.4 % (37.0-47.0); HEMOGLOBIN 8.4 g/dl (12.0-16.0); MEAN CELL VOLUME 93.1 fL CALC (80.0-100.0); MEAN CORPUSCULAR HGB 27.5 pG CALC (26.0-32.0); MEAN CORPUSCULAR HGB CONC 29.6 g/dL CAL (32.0-36.0); RED BLOOD COUNT 3.05 mill/uL (4.20-5.60); RED CELL DISTRI WIDTH 17.7 % (11.5-15.5)
[2021-04-12 07:13] LABS: ALBUMIN 2.1 g/dL (3.2-5.0); POTASSIUM 4.5 mmol/l (3.5-5.1); TOTAL PROTEIN 5.1 g/dL (6.3-8.2)
--- NOTE | 2021-04-12 08:00 | NUR ---
PATIENT IS STILL VENTED. SEEMS COMFORTABLE AT THIS TIME. NO MOVEMENT. 3MM PERRLA. NON VERBAL DUE TO THE VENT. SUCTION NEEDED. DIMINISHED LUNG SOUNDS. SOFT/ OBESE ABDOMEN. ACIVE BOWEL SOUNDS. EDEMA ALL LIMBS PIT 1+. OPEN AREAS IN LLE. ENRIQUEZ CARE BEING DONE. OLY URINE. SAFETY MEASURES IN PLACE. WILL COTNINUE TO MONITOR.
--- NOTE | 2021-04-12 11:01 | NUR ---
NAD. VSS. NO CHANGES IN PARAMETERS AT THIS TIME. EXPENSE ANALYST TO MONITORT.
--- NOTE | 2021-04-12 12:50 | NUR ---
PATIENT WAS WEANED OFF SEDATION. DID NOT TOLERATE IT WELL. UNABLE TO CONTROL HER OWN BODY MOVEMENTS. MOVED HEAD SIDE TO SIDE. EYES DID NOT FOLLOW THE DIRECTION HER HEAD WAS MOVING TO. SHE STARRED UP AT THE CEILING. DID NOT FOLLOW ANY COMMANDS. VITAL SIGNS INCREASED. RT WAS CALLED TO REPLACE TUBING. SUCTION WAS PERFORMED. SEDATION WAS TITRATED BACK ON. SAFETY MEASURES IN PLACE. WILL CONTINUE TO MONITOR.
--- NOTE | 2021-04-12 13:30 | NUR ---
PATIENT HAD X RAY DONE, JUST TO ENSURE THE PLACEMENT IS STILL IN THE CORRECT LOCATION.
--- NOTE | 2021-04-12 14:38 | NUR ---
weaned fio2 as per pt spo2. hardik well at this time. double back operator to monitor.
--- NOTE | 2021-04-12 15:55 | NUR ---
nad. vss. floor finisher to monitor. no changes at this time.
--- NOTE | 2021-04-12 16:04 | NUR ---
PATIENT'S DAUGHTER IN LAW KAUSHIK WAS UPDATED ON PATIENT'S CONDITION.
--- NOTE | 2021-04-12 18:04 | NUR ---
PATIENT RESTING IN BED, SEDATION CONTINUES. SAFETY MEASURES IN PLACE. WILL CONTINUE TO MONITOR.
--- NOTE | 2021-04-12 20:00 | NUR ---
ASSESSMENT DONE TUBE FEEDS OFF OGT PLACEMENT CHECKED BY AUSCULTATION OF AIR BOLUS TUBE FLUSHED WITH 20CC WATER. ON VENT DIPRIVAN INFUSING TURNED TO LEFT SIDE
--- NOTE | 2021-04-12 22:05 | NUR ---
TURNED TO RIGHT SIDE URINE NOTED TO BE OLY IN COLOR DR FLORES UPDATED VIA PHONE ON PTS STATUS
--- NOTE | 2021-04-12 23:51 | NUR ---
TURNED ON BACK SX ETT NS INFUSING WELL DIPRIVAN PT SEDATED
[2021-04-13] VITALS (17 sets, daily range): BP systolic 86–164; BP diastolic 40–74
--- NOTE | 2021-04-13 04:10 | NUR ---
COMPLETE BATH DONE ENRIQUEZ CARE AND MOUTH CARE DONE PARTIAL LINEN CHANGE DONE TOLERATED WELL
--- NOTE | 2021-04-13 05:58 | NUR ---
NO ACUTE CHANGES NOTED EYE CLOSED
[2021-04-13 06:11] LABS: BASO% 0 % (0-3); EOS% 0 % (0-8); HEMATOCRIT 26.6 % (37.0-47.0); HEMOGLOBIN 7.8 g/dl (12.0-16.0); IMMATURE GRANULOCYTES 2.2 % (0.0-5.0); LYMPH% 8 % (15-41); MEAN CELL VOLUME 90.5 fL CALC (80.0-100.0); MEAN CORPUSCULAR HGB 26.5 pG CALC (26.0-32.0); MEAN CORPUSCULAR HGB CONC 29.3 g/dL CAL (32.0-36.0); MONO% 8 % (2-13); NEUT# 7.52 thou/uL (2.00-7.15); NEUT% 81 % (42-76); PLATELET COUNT 127 thou/uL (130-400); RED BLOOD COUNT 2.94 mill/uL (4.20-5.60); RED CELL DISTRI WIDTH 17.2 % (11.5-15.5)
[2021-04-13 06:53] LABS: BILIRUBIN, TOTAL 0.6 mg/dL (0.0-1.4); CREATININE 1.8 mg/dL (0.5-1.0); TOTAL PROTEIN 5.8 g/dL (6.3-8.2)
[2021-04-13 07:03] LABS: ALBUMIN 2.7 g/dL (3.2-5.0); C-REACTIVE PROTEIN 19.4 mg/dL (0-0.9); POTASSIUM 3.4 mmol/l (3.5-5.1)
--- NOTE | 2021-04-13 07:55 | NUR ---
PATIENT IS STILL ON A VENT, O2 SATS ARE DOING WELL. IS SLIGHTLY RESTLESS. PROP STILL ON FOR SEDATION. VITALS ARE STABLE. REPOSITIONED. ORAL CARE PROVIDED. SUCTION WAS PERFORMED. SWELLING/EDEMA ON ALL LIMBS 1-2+. WEAK PEDAL PULSES. OBESE, SOFT ABDOMEN, ACTIVE BOWEL SOUNDS. SAFETY MEASURES IN PLACE. WILL COTNINUE TO MONITOR.
--- NOTE | 2021-04-13 10:00 | NUR ---
PATIENT IS STABLE. RESTING IN BED ON A VENT.
--- NOTE | 2021-04-13 12:14 | NUR ---
PATIENT APPEARS COMFORTABLE. WILL BE WEANING OFF SEDATION SOON.
--- NOTE | 2021-04-13 14:50 | NUR ---
PATIENT WAS WEANED OFF SEDATION AT 1300, TITRATED BACK TO 35 AROUND 1435 DUE TO INCREASING VITAL SIGNS. USING ABDOMINAL MUSCLES WHILE BREATHING. INVOLUNTARY MOVEMENTS WITH HEAD. EYES STAYED FOCUSED ON THE CEILING WHILE TURNING HER HEAD. OXYGEN LEVELS STARTED TO DROP. WAS NOT FOLLOWING COMMANDS. DID NOT RESPOND TO TOUCH OR PAINFUL STIMULI. DID NOT LOOK COMFORTABLE. SEDATION IS BACK ON AND RUNNING. SHE APPEARS TO BE COMFORTABLE AT THIS TIME. RESP. RATE DECREASED AND OXYGEN LEVELS ARE RISING BACK TO UPPER 90'S. SAFETY MEASURES IN PLACE. WILL CONTINUE TO MONITOR.
--- NOTE | 2021-04-13 18:00 | NUR ---
PATIENT WAS WASHED UP, CHANGED SHEETS, HAD A MODERATE BOWEL MOVEMENT. SAFETY MEASURES IN PLACE.
--- NOTE | 2021-04-13 20:16 | NUR ---
ASSESSMENT COMPLETED ON VENT ETT TO RT AT 22CM OGT CHECKED FOR PLACEMENT WITH AUSCULTATION OF AIR BOLUS CLAMPED ENRIQUEZ TO BSD WITH OLY URINE [id number] INFUSING AT 35MCG/KG/MIN AND SALINE INFUSING AT 75CC/HR VIA RT IJTLC.
--- NOTE | 2021-04-13 20:51 | NUR ---
DR FLORES UPDATED
--- NOTE | 2021-04-13 22:09 | NUR ---
IN BED WITH EYES CLOSED POSITION CHANGE AND ETT SX MOUTHCARE GIVEN
[2021-04-14] VITALS (23 sets, daily range): BP systolic 103–166; BP diastolic 43–78
--- NOTE | 2021-04-14 00:02 | NUR ---
BLOOD SUGAR 60 D50 1 AMP 50CC GIVEN IV WILL RECHECK BLOOD SUGAR NO OTHER CHANGES NOTED SX ETT FOR MODERATE GREEN TINGED SECRETIONS
--- NOTE | 2021-04-14 02:00 | NUR ---
NO CHANGES NOTED IN BED TURNED TO RIGHT SIDE O2 SAT 96%
--- NOTE | 2021-04-14 03:30 | NUR ---
REPEAT BLOOD SUGAR 69
--- NOTE | 2021-04-14 03:43 | NUR ---
REPOSITIONED TO LEFT SIDE EYES CLOSED SEDATED ON DIPRIVAN SX ETT ORAL CARE DONE WITH SWABS AMD SUCTION MONITOR SHOW SR
[2021-04-14 05:16] LABS: HEMATOCRIT 25.2 % (37.0-47.0); HEMOGLOBIN 7.5 g/dl (12.0-16.0); MEAN CORPUSCULAR HGB 27.4 pG CALC (26.0-32.0); MEAN CORPUSCULAR HGB CONC 29.8 g/dL CAL (32.0-36.0); RED BLOOD COUNT 2.74 mill/uL (4.20-5.60); RED CELL DISTRI WIDTH 17.8 % (11.5-15.5)
[2021-04-14 05:35] LABS: ALBUMIN 2.9 g/dL (3.2-5.0); BILIRUBIN, TOTAL 0.7 mg/dL (0.0-1.4); CREATININE 1.3 mg/dL (0.5-1.0); TOTAL PROTEIN 5.8 g/dL (6.3-8.2)
--- NOTE | 2021-04-14 06:05 | NUR ---
K+ 3.0 POTASSIUM REPLACEMENT PROTOCOL INSTITUTED
--- NOTE | 2021-04-14 09:57 | NUR ---
PT SEEN AT REST IN THE BED, NO DISTRESS. PT IS VENTED AND SEDATED, MEGAN KEEPS PT UNDER LIGHT SEDATION. PT SEEN BY DR VAZQUEZ THIS MORNING.
--- NOTE | 2021-04-14 13:31 | NUR ---
PT WAITS ON [facility] TO HAVE OPEN BED FOR HER TRANSFER THERE FOR TRACH AND FURTHER TREATMENT. PT REMAINS SEDATED, OCCASIONAL MOVEMENT.
--- NOTE | 2021-04-14 16:39 | NUR ---
NO CHANGE TO REPORT IN PT STATUS. PT REMAINS AT REST IN THE BED WITHOUT RESTRAINTS IN PLACE, OCCASIONAL MOVEMENTS SEEN. NO CALL YET FROM [facility] REGARDING AVAILABLE BED.
--- NOTE | 2021-04-14 18:01 | NUR ---
PT HAS BEEN WASHED UP, LINEN CHANGED BY CAROLEE. PT CONTINUES BEFORE, WEDGE PROPS HER UP ON LEFT SIDE.
--- NOTE | 2021-04-14 20:30 | NUR ---
PATIENT LAYS SEMI-NGUYEN'S. ON VENTILATOR, VENT SETTINGS: FIO2 50%, PEEP 10, RATE 28, TIDAL VOLUME 350, 22 CM AT THE LIP, ET SIZE 8. SPO2 94%. DOES NOT FOLLOW COMMANDS. ON DIPRIVAN 35 MCG/KG/MIN AND NS AT 75 ML/HR. RIJ TRIPLE LUMEN INTACT, FLUSHES PROPERLY, RETURNS BLOOD. ENRIQUEZ CATHETER IN PLACE DARK OLY WITH SEDIMENT NOTED. HAS OG, WAS VERIFIED BY AUSCULTATION, WAS PLACED ON LIS, GREEN DRAINAGE NOTED. MOUTH CARE PROVIDED, HAS LARGE AMOUNTS OF YELLOW/THICK PHLEGM WHEN SUCTIONING ET TUBE. HAS DEPENDENT EDEMA TO BILAT UE. 1+ EDEMA TO R-LEG, LEFT LEG HAS DRY/RED SCABBED AREAS, AND A BLISTER/IS MORE SWOLLEN THAN R-LEG. BILAT PEDAL PULSES PRESENT/STRONG. SCD PLACED ON RIGHT LEG. AIR MATRESS INTACT, WEDGE TAKEN OFF OFF RIGHT SIDE. HOB 30 DEGREES. BP WNL. SR ON TELEMETRY, RESP RATE 30'S/SHALLOW. BILAT UE ELEVATED WITH PILLOW. LEFT LEG ELEVTED WITH PILLOW.
--- NOTE | 2021-04-14 22:20 | NUR ---
PATIENT HAD MEDIUM/LOOSE/WATERY/GREEN BM, DANUTA/ENRIQUEZ CARE PROVIDED. WAS REPSOITIONED, MOUTH CARE PROVIDED, SUCTIONED. LAYS ON HER R-SIDE. BILAT UE AND LE ELEVATED WITH PILLOWS.
[2021-04-15] VITALS (20 sets, daily range): BP systolic 90–167; BP diastolic 40–71
--- NOTE | 2021-04-15 02:07 | NUR ---
PATIENT WAS SUCTIONED. DOES HAVE MODERATE AMOUNTS OF PHLEGM. WAS REPOSITONED, PULLED UP X4 MAX ASSIST. HOB 30 DEGREES.
[2021-04-15 04:15] LABS: BASO% 1 % (0-3); EOS% 4 % (0-8); HEMOGLOBIN 8.2 g/dl (12.0-16.0); IMMATURE GRANULOCYTES 2.3 % (0.0-5.0); LYMPH% 11 % (15-41); MEAN CELL VOLUME 93.3 fL CALC (80.0-100.0); MEAN CORPUSCULAR HGB 27.3 pG CALC (26.0-32.0); MEAN CORPUSCULAR HGB CONC 29.3 g/dL CAL (32.0-36.0); MONO% 10 % (2-13); NEUT# 5.33 thou/uL (2.00-7.15); NEUT% 73 % (42-76); PLATELET COUNT 108 thou/uL (130-400); RED CELL DISTRI WIDTH 18.2 % (11.5-15.5)
--- NOTE | 2021-04-15 04:30 | NUR ---
PATIENT HAD SMALL BM. BED LINENS CHANGED, DANUTA AND ENRIQUEZ CARE PROVIDED. BARRIER CREAM APPLIED TO BUTTOCKS WHICH IS RED. WAS REPOSITIONED TO HER RIGHT SIDE. PILLOWS TO EXTREMETIES. WAS SUCTIONED, MOUTH CARE PROVIDED. HOB 30 DEGREES.
[2021-04-15 04:44] LABS: ALBUMIN 2.8 g/dL (3.2-5.0); BILIRUBIN, TOTAL 0.9 mg/dL (0.0-1.4); C-REACTIVE PROTEIN 6.3 mg/dL (0-0.9); CREATININE 1.2 mg/dL (0.5-1.0); POTASSIUM 3.5 mmol/l (3.5-5.1); TOTAL PROTEIN 5.8 g/dL (6.3-8.2)
--- NOTE | 2021-04-15 05:33 | NUR ---
RT IN ROOM TO DO ABG.
--- NOTE | 2021-04-15 09:00 | NUR ---
PT SEEN SEDATED AND VENTED SHE RESTS IN THE BED. SHE IS SATURATING WELL IN THE 90s, NO DISTRESS NOTED. PT CONTINUES TO WAIT ON [facility] FOR TRACH PLACEMENT.
--- NOTE | 2021-04-15 13:21 | NUR ---
PT HAS HAD AN UNEVENTFUL DAY THUS FAR, RESTS IN THE BED WITH TURNING Q2H. VENT SETTINGS BEFORE, SATS IN THE MID TO UPPER 90s.
--- NOTE | 2021-04-15 16:41 | NUR ---
PT CLEANED UP FOR STOOL INCONTINENCE, SEEN AT REST IN THE BED IN NO ACUTE DISTRESS. NO CALLS FROM [facility].
--- NOTE | 2021-04-15 19:30 | NUR ---
PATIENT LAYS WITH HOB AT 30 DEGREES. CONTINUES TO BE ON VENTILATOR, VENT SETTINGS: TODAL VOLUME 350, PEEP 10, RATE 28, FIO2 50%, 22 CM AT THE LIP, ET SIZE 8. RESP RATE HIGH 20'S TO 30'S WHEN SUCTIONING. MOUTH CARE PROVIDED, PT DID HAVE MODERATE AMOUNT OF SALIVA/PHLEGM FROM MOUTH, SUCTIONED ET TUBE AND DOES HAVE SMALL AMOUNT OF GARZA/YELLOW/BLOOD TINGED PHLEGM. WHEN SUCTIONING ET TUBE PATIENT BILLY MOVE HEAD FROM SIDE TO SIDE. WEDGE TAKEN OF FROM LEFT SIDE. ALL EXTREMETIES ELEVATED WITH PILLOWS. PATIENT HAS 2+ PITTING EDEMA TO BUE, 1+ PITTING EDEMA TO FEET. LLE MEDIAL SIDE HAS OPEN SCABS DRAINING SEROSSANGUINOUS FLUID AND A BLISTER PRESENT. OG TUBE CONTINUES TO DRAIN GREEN BILE, IS ON LIS, PLACEMENT WAS VERIFIED VIA AUSCULTATION. ENRIQUEZ CATHETER INTACT, DRAINS OLY/CLOUDY/WITH SEDIMENT. SR ON TELEMETRY, HR 80'S. BP WNL, SPO2 97%. NURSE ASSESSMENT PERFORMED. RIJ INTACT 2 LUMENS FLUSH AND RETURN BLOOD. DIPRIVAN DRIP INFUSING AT 35 MCG/KG/MIN. AIR MATRESS INTACT. SCD TO RLE.
--- NOTE | 2021-04-15 21:50 | NUR ---
PATIENT HAD SMALL LOOSE/GREEN BM, PERICARE AND ENRIQUEZ CARE PROVIDED. REPOSITIONED. ALL EXTREMETIES ELEVATED. ET AND MOUTH SUCTIONED. MOUTH CARE PROVIDED. BARRIER OINTMENT APPLIED TO RED BUTTOCKS. HOB 30 DEGREES.
[2021-04-16] VITALS: BP 146/67
[2021-04-16 01:37] VITALS: BP 132/75
[2021-04-16 02:00] VITALS: BP 157/57
[2021-04-16 04:00] VITALS: BP 120/53
--- NOTE | 2021-04-16 04:58 | NUR ---
BLOOD DRAWN FORM [facility] FOR AM LABS.
--- NOTE | 2021-04-16 05:30 | NUR ---
PERICARE/ENRIQUEZ CARE PROVIDED. PATIENT HAD SCANT BM/GREEN/LOOSE. MOUTH/ET SUCTIONED, NO BLOOD NOTED FROM ET TUBE. ERNIQUEZ CATHETER INTACT, NO BLOOD NOTED. SYNTHROID PROVIDED VIA OG, CLAMPED FOR NOW. WAS REPOSITONED/ PULLED UP. ALL ECTREMETIES ELEVATED. R-ELBOW NOTED TO HAVE SMALL DOTS OF BLOOD AND THAN BURSTED WITH SEROSSANGUINOUS DRAINAGE/ LARGE AMOUNT.
[2021-04-16 05:46] VITALS: BP 123/51
[2021-04-16 06:30] LABS: BASO% 1 % (0-3); EOS% 3 % (0-8); HEMATOCRIT 26.8 % (37.0-47.0); HEMOGLOBIN 7.7 g/dl (12.0-16.0); IMMATURE GRANULOCYTES 1.6 % (0.0-5.0); LYMPH% 14 % (15-41); MEAN CORPUSCULAR HGB CONC 28.7 g/dL CAL (32.0-36.0); MONO% 8 % (2-13); NEUT# 4.65 thou/uL (2.00-7.15); NEUT% 73 % (42-76); PLATELET COUNT 91 thou/uL (130-400); RED BLOOD COUNT 2.85 mill/uL (4.20-5.60); RED CELL DISTRI WIDTH 17.9 % (11.5-15.5)
[2021-04-16 06:47] LABS: ALBUMIN 2.5 g/dL (3.2-5.0); BILIRUBIN, TOTAL 0.7 mg/dL (0.0-1.4); CREATININE 1.1 mg/dL (0.5-1.0); POTASSIUM 3.3 mmol/l (3.5-5.1); TOTAL PROTEIN 5.3 g/dL (6.3-8.2)
--- NOTE | 2021-04-16 10:00 | NUR ---
PT SEEN VENTED, SEDATED, RESTING IN THE BED. DIPRIVAN WEANED DOWN TO 5 MKM, PT WAS LOOKING AROUND WITHOUT FOCUSING, NOT SQUEEZING HAND DIRECTED. PT WITH RIGHT ELBOW LEAKING BLOOD, APPEARS TO BE LIKE BLOOD BLISTER. ENRIQUEZ DRAINS DARK OUTPUT, OLY/BROWN IN COLOR. PT SEDATION STARTED UP AFTER WEANING TRIAL, PT LIGHTLY SEDATED.
--- NOTE | 2021-04-16 12:24 | NUR ---
PT HAS LEFT [facility] EN ROUTE TO [facility] VIA [facility] TRANSPORT. PT LEAVES [facility] IN SERIOUS BUT STABLE CONDITION, VENTED, SEDATED. REPORT WAS PROVIDED TO JONNATHAN CARVAJAL. PT LEAVES WITH ONLY DIPRIVAN RUNNING, THIS AT 35 MKM.
== END 2021-04-16 12:15 | disposition short-term general hospital (02) | DRG 870 ==
LOC: ED 17:17 → ED-I 03-30 00:10 → ED 03-30 00:35 → ICU 03-30 00:36
PROVIDERS: Hospitalist; Internal Medicine; ADMIT Internal Medicine; ATTEND Internal Medicine
PROC: 0BH17EZ Insertion of Endotracheal Airway into Trachea, Via Natural or Artificial Opening (ICD-10-PCS; principal; 2021-03-29)
PROC: 5A1955Z Respiratory Ventilation, Greater than 96 Consecutive Hours (ICD-10-PCS; 2021-03-29)
PROC: 5A09357 Assistance with Respiratory Ventilation, Less than 24 Consecutive Hours, Continuous Positive Airway Pressure (ICD-10-PCS; 2021-03-29)
PROC: 0T9B70Z Drainage of Bladder with Drainage Device, Via Natural or Artificial Opening (ICD-10-PCS; 2021-03-29)
PROC: XW033E5 Introduction of Remdesivir Anti-infective into Peripheral Vein, Percutaneous Approach, New Technology Group 5 (ICD-10-PCS; 2021-03-30)
PROC: 02HV33Z Insertion of Infusion Device into Superior Vena Cava, Percutaneous Approach (ICD-10-PCS; 2021-04-02)
DX: A41.89 Other specified sepsis (principal); U07.1 COVID-19; J12.82 Pneumonia due to coronavirus disease 2019; J80 Acute respiratory distress syndrome; R65.21 Severe sepsis with septic shock; E87.2 Acidosis; N17.9 Acute kidney failure, unspecified; I13.0 Hypertensive heart and chronic kidney disease with heart failure and stage 1 through stage 4 chronic kidney disease, or unspecified chronic kidney disease; E87.0 Hyperosmolality and hypernatremia; J44.0 Chronic obstructive pulmonary disease with (acute) lower respiratory infection; I50.9 Heart failure, unspecified; E11.22 Type 2 diabetes mellitus with diabetic chronic kidney disease; N18.9 Chronic kidney disease, unspecified; E03.9 Hypothyroidism, unspecified; E11.69 Type 2 diabetes mellitus with other specified complication; E78.5 Hyperlipidemia, unspecified; E11.40 Type 2 diabetes mellitus with diabetic neuropathy, unspecified; K21.9 Gastro-esophageal reflux disease without esophagitis; R00.1 Bradycardia, unspecified; T41.295A Adverse effect of other general anesthetics, initial encounter; S80.822A Blister (nonthermal), left lower leg, initial encounter; X58.XXXA Exposure to other specified factors, initial encounter; F41.9 Anxiety disorder, unspecified; F32.9 Major depressive disorder, single episode, unspecified; F17.200 Nicotine dependence, unspecified, uncomplicated; Z79.4 Long term (current) use of insulin; Z86.73 Personal history of transient ischemic attack (TIA), and cerebral infarction without residual deficits
CPT/HCPCS: J0692; J1650; J2060; P9047; Q9967; S0164